=== PATIENT | male | born 1945 | race Caucasian/White ===

== ENCOUNTER → 2018-06-05 10:44 | Outpatient (CLI) | payer MEDICARE, OTHER, SELFPAY ==
--- NOTE | 2018-06-05 10:44 | DI.REPORT_ITS ---
SYMPTOM/DIAGNOSIS: RT SHOULDER INJURY WITH IMPINGEMENT SYNDROME M75.41 RIGHT SHOULDER: There is spurring of the AC joint and glenohumeral joint. The humeral head appears normally positioned. No tendon or joint space calcifications are seen. IMPRESSION: Degenerative changes.
== END ==
PROVIDERS: PCP Family Medicine; Visit Provider Family Medicine
DX: M25.511 Pain in right shoulder (principal); M75.41 Impingement syndrome of right shoulder; M19.011 Primary osteoarthritis, right shoulder
CPT/HCPCS: 73030

== ENCOUNTER 2018-11-15 13:42 | Outpatient (CLI) | payer MEDICARE, OTHER, SELFPAY ==
--- NOTE | 2018-11-15 11:00 | DI.RAD_ITS ---
SYMPTOMS/DIAGNOSIS: RT ARM PAIN/WEAKNESS, RT SIDE CERVICALGIA, M54.2 CERVICAL SPINE: The vertebral bodies are intact. There is reversal of the normal cervical lordosis. Severe degenerative changes are demonstrated, most advanced in the facet joints. There is also some flattening and sclerosis of the joints of Luschka. 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 The C 6 - 7 level is suboptimally visualized on this examination. The posterior elements appear intact. There is no evidence of gross bony compromise of the neural canal. Incidental note is made of a region of ossification in the ligamentum nuchae. The patient has a left shoulder prosthesis. SUMMARY: Severe degenerative changes involving the cervical spine. Please see the above discussion.
== END 2018-11-15 14:02 ==
PROVIDERS: PCP Family Medicine; Visit Provider Family Medicine
DX: M54.2 Cervicalgia (principal); M79.601 Pain in right arm; M50.30 Other cervical disc degeneration, unspecified cervical region
CPT/HCPCS: 72052

== ENCOUNTER 2018-12-03 14:35 | Emergency (ER) | payer MEDICARE, OTHER, SELFPAY ==
[2018-12-03] VITALS (30 sets, daily range): BP systolic 113–165; BP diastolic 68–107; PULSE 87–107; RESP 4–36; TEMP 37.2–37.4; O2SAT 83–97
--- NOTE | 2018-12-03 15:24 | DI.RAD_ITS ---
SYMPTOMS/DIAGNOSIS: SOB, COUGH, FEVER, DIZZY CHEST X-RAY, FRONTAL AND LATERAL VIEWS: Comparison is 06/05/18. The heart is normal in size. The lungs are clear. The mediastinal structures and pleura appear intact. IMPRESSION: Normal chest.
[2018-12-03] MEDS: Albuterol/Ipratropium 3 ML UPD VIAL UPD (15:40)
[2018-12-03 15:46] LABS: Lactate-non-spesis 1.1 mmol/l (0.6-1.4)
[2018-12-03 15:49] LABS: Abs Immature Grans 0.07 k/cumm (0.0-0.09); HCT 45.4 % (40.0-50.0); HGB 15.1 g/dL (13.5-17.5); Mean Corp. HGB Concentration 33.3 g/dL (32.0-36.0); Mean Corpuscular Hemoglobin 29.5 pg (27.0-33.0); Mean Corpuscular Volume 88.7 fL (80-95); Mean Platelet Volume 9.3 fL (8.0-11.0); Platelet Count 281 x1000/uL (130-400); RBC 5.12 m/cumm (4.50-6.00); RBC Distribution Width 14.4 % (11.8-14.1); White Blood Cell Count 16.15 k/cumm (4.4-10.8)
--- NOTE | 2018-12-03 15:50 | W.ED.GENAD ---
Discharge Plan Disposition Patient Disposition: HOME Condition: Stable Discharge Details Chief Complaint: SOB Clinical Impression: Community acquired pneumonia Reason For Visit: SOB cough fever dizzy Primary Care Provider: Nestor Barry ED Provider: Tc Nelson Home Meds and New Rx's Prescriptions: New levofloxacin 750 mg tablet 750 mg PO DAILY Qty: 6 RF: 0 No Action prednisone 20 mg tablet 40 mg PO DAILY Qty: 14 RF: 0 Ventolin HFA 90 mcg/actuation HFA aerosol inhaler 2 puff IH Q6H PRN (Reason: shortness of breath or wheezing) Qty: 8 RF: 1 Aerochamber Mini spacer .ROUTE .MEDSUPPLY Qty: 1 RF: 0 Discharge Instructions Instructions: Community Acquired Pneumonia (ED) Additional Instructions: Follow up with your primary care provider this week especially if symptoms continue If you feel you are worsening, having more trouble breathing or severe weakness return to the emergency department for reevaluation Discharge Data Discharge Date/Time-TO BE ENTERED AT DEPARTURE: 12/03/18 18:05 Medical Decision Making <Renato Pink NP - Last Filed: 12/06/18 11:09> Patient presenting to the emergency department for chief complaint of cold-like symptoms. Patient did have episode of slight near syncope when standing up in waiting room. He states that symptoms have been going on for approximately 6 days with persistent fever and chills, worsening cough, productive green sputum. Physical exam shows diffuse wheezing throughout all lung haddad and right lower lung rhonchi. Patient is otherwise stable with no hypotension, mild tachycardia, slightly hypoxic and tachypneic. Plan to do labs, influenza test, and chest x-ray for concern of pneumonia versus viral illness. Pending results. Patient was transferred to Dr. Nelson. Patient pending results review, any further treatments, and disposition. HPI <Renato Pink NP - Last Filed: 12/06/18 11:09> General Mode of arrival: ambulatory. Date/Time Provider Initiated Documentation: 12/03/18 15:24. Limitations to Documentation: no limitations. Information obtained by: patient, family and RN notes reviewed. History of Present Illness 73 year old M presents to the emergency department with the chief complaint of cough fever , described as mild, with intensity rated at 2. Quality is described as aching, and is localized to the chest (with coughing). Patient started experiencing this day(s) (6) and it has been constant. Patient did receive the following treatments prior to arrival, none Related Data Home Medications Medication Instructions Recorded Confirmed prednisone 20 mg tablet 40 mg PO DAILY #14 tab 11/15/18 12/03/18 albuterol sulfate HFA 90 2 puff IH Q6H PRN #8 gm 12/01/18 12/03/18 mcg/actuation aerosol inhaler inhalational spacing device #1 each 12/01/18 12/01/18 levofloxacin 750 mg PO DAILY #6 tab 12/03/18 Previous Rx's Medication Instructions Recorded prednisone 20 mg tablet 40 mg PO DAILY #14 tab 11/15/18 albuterol sulfate HFA 90 2 puff IH Q6H PRN #8 gm 12/01/18 mcg/actuation aerosol inhaler inhalational spacing device #1 each 12/01/18 levofloxacin 750 mg PO DAILY #6 tab 12/03/18 Allergies Allergy/AdvReac Type Severity Reaction Status Date / Time latex Allergy Mild Runny nose Unverified 12/03/18 15:04 and eyes ENVIROMENTAL Allergy Intermediate Uncoded 12/03/18 15:04 General Stated Complaint: SOB JACINTO: 3 Review of Systems <Renato Pink NP - Last Filed: 12/06/18 11:09> Constitutional Reports body ache(s), Reports chills, Reports fever(s), Denies headache(s) and Reports malaise Eyes Denies eye discharge ENT Reports as per HPI, Reports dizziness, Denies ear discharge, Reports otalgia, Denies headache(s), Reports nasal congestion, Reports nasal discharge, Denies neck pain, Denies sinus pain, Reports sinus pressure, Reports sore throat and Denies throat swelling Cardiovascular Denies chest pain and Reports dyspnea Respiratory Reports cough, Reports pain with cough and Reports dyspnea Musculoskeletal Denies joint swelling and Denies neck pain Integumentary/Breasts Denies rash Neurologic Denies confusion, Reports dizziness and Denies headache(s) Psychiatric Denies confusion Allergic/Immunologic Denies throat swelling PFS <Renato Pink NP - Last Filed: 12/06/18 11:09> Medical History Acne rosacea Actinic keratosis Allergic rhinitis BPH (benign prostatic hyperplasia) Back pain Chronic alcohol use Colon polyp Deviated septum Diverticulitis large intestine w/o perforation or abscess w/o bleeding Fatty liver Hyperlipidemia Hypertension Sleep apnea Syncope Ulcerative colitis Urticaria Surgical History Arthroplasty of knee Arthroscopy, Shoulder Colonoscopy - [facility] [place] (07/20/17) Surgery Total knee (right) Family History Mother Mental disorder Father CHF (congestive heart failure) Heart disease Brother No problems noted. Grandfather No problems noted. Grandfather No problems noted. Grandmother No problems noted. Grandmother No problems noted. Sister Neoplasm Sister No problems noted. Sister No problems noted. Sister No problems noted. Sister No problems noted. Sister No problems noted. Son No problems noted. Son No problems noted. Daughter No problems noted. Daughter No problems noted. Daughter No problems noted. Social History Smoking and Tabacco status: Former Tobacco Use Exam <Renato Pink NP - Last Filed: 12/06/18 11:09> Const General: cooperative, comfortable and no acute distress Orientation: alert and awake [facility] Head: normal to inspection, normocephalic and atraumatic Ears: hearing grossly normal bilaterally and TM's normal bilaterally General nose exam: external nose normal Face and sinus: normal facial exam, sinuses nontender and no erythema Mouth: oral mucosae normal, no drooling, no muffled voice and no trismus Throat: posterior oropharynx normal, tonsils normal and uvula midline Neck Neck: normal visual inspection, full ROM, no lymphadenopathy, no meningeal signs, trachea midline and supple Resp Effort & Inspection: normal respiratory effort and able to speak in complete sentences Auscultation: clear to auscultation bilaterally, rhonchi right lower and wheezes expiratory wheezes and scattered wheezes Cardio Rate: tachycardic Rhythm: regular rhythm Heart Sounds: S1 normal, S2 normal, normal S1 and S2, no click, no gallops, no murmurs and no rubs Skin General skin exam: no rashes or lesions noted and dry skin (warm) Neuro General: alert, awake, oriented x3, gait normal and moves all extremities Cognition: normal cognition Speech: speech normal Course <Renato Pink NP - Last Filed: 12/06/18 11:09> Vital Signs Temperature 37.2 C 12/03/18 15:01 Pulse 102 H 12/03/18 15:01 Respiratory Rate 22 12/03/18 15:01 Blood Pressure 165/90 H 12/03/18 15:01 Temperature 37.2 C 12/03/18 15:01 Temperature Source Oral 12/03/18 15:01 Pulse 102 H 12/03/18 15:01 Respiratory Rate 24 12/03/18 15:20 Respiratory Effort 12/03/18 15:20 Respiratory Depth Normal 12/03/18 15:20 Respiratory Pattern Normal 12/03/18 15:20 Blood Pressure 165/90 H 12/03/18 15:01 Blood Pressure Position Supine 12/03/18 15:01 Pulse Oximetry 95 12/03/18 15:12 Oxygen Delivery Method Room Air 12/03/18 15:12 Oxygen Flow Rate 0 12/03/18 15:12 Pain Level 2 12/03/18 15:01 Lab/Test Results Lab/Test Results: 12/03/18 15:40 Blood Blood Culture - Pending 12/03/18 15:12 Nasopharynx Influenza Types A,B Antigen - Final 12/03/18 15:24 Blood Blood Culture - Pending Laboratory Tests Range/Units 12/03/18 15:40 Lactate (0.6-1.4) mmol/l 1.1 Sign Out <Renato Pink NP - Last Filed: 12/06/18 11:09> Sign Out Data: Sign Out Comment: Patient signed out to Dr. Vik Nelson pending results of chest x-ray and blood work for concern of pneumonia. Last updated by Renato Pink NP at 12/03/18 16:12 Post-Handoff Eval: pt's xray shows no acute process. He does have a wbc of 16, hd stable, o2 sat on room air is 95%. He does have some rhonchi at the right lower base. I did recommend admission for likely CAP but he feels well enough to go home and would like to try outpatient management, he has capacity to make his own decisions and understands to return immediately if he worsens and f/u with pcp
--- NOTE | 2018-12-03 15:53 | ED.GENADUL_ITS ---
Discharge Plan Disposition Patient Disposition: HOME Condition: Stable Discharge Details Chief Complaint: SOB Clinical Impression: Community acquired pneumonia Reason For Visit: SOB cough fever dizzy Primary Care Provider: Nestor Barry ED Provider: Tc Nelson Home Meds and New Rx's Prescriptions: New levofloxacin 750 mg tablet 750 mg PO DAILY Qty: 6 RF: 0 No Action prednisone 20 mg tablet 40 mg PO DAILY Qty: 14 RF: 0 Ventolin HFA 90 mcg/actuation HFA aerosol inhaler 2 puff IH Q6H PRN (Reason: shortness of breath or wheezing) Qty: 8 RF: 1 Aerochamber Mini spacer .ROUTE .MEDSUPPLY Qty: 1 RF: 0 Discharge Instructions Instructions: Community Acquired Pneumonia (ED) Additional Instructions: Follow up with your primary care provider this week especially if symptoms continue If you feel you are worsening, having more trouble breathing or severe weakness return to the emergency department for reevaluation Discharge Data Discharge Date/Time-TO BE ENTERED AT DEPARTURE: 12/03/18 18:05 Medical Decision Making <Renato Pink NP - Last Filed: 12/06/18 11:09> Patient presenting to the emergency department for chief complaint of cold-like symptoms. Patient did have episode of slight near syncope when standing up in waiting room. He states that symptoms have been going on for approximately 6 days with persistent fever and chills, worsening cough, productive green sputum. Physical exam shows diffuse wheezing throughout all lung haddad and right lower lung rhonchi. Patient is otherwise stable with no hypotension, mild tachycardia, slightly hypoxic and tachypneic. Plan to do labs, influenza test, and chest x-ray for concern of pneumonia versus viral illness. Pending results. Patient was transferred to Dr. Nelson. Patient pending results review, any further treatments, and disposition. HPI <Renato Pink NP - Last Filed: 12/06/18 11:09> General Mode of arrival: ambulatory . Date/Time Provider Initiated Documentation: 12/03/18 15:24 . Limitations to Documentation: no limitations . Information obtained by: patient, family and RN notes reviewed . History of Present Illness 73 year old M presents to the emergency department with the chief complaint of cough fever , described as mild, with intensity rated at 2. Quality is described as aching, and is localized to the chest (with coughing). Patient started experiencing this day(s) (6) and it has been constant. Patient did receive the following treatments prior to arrival, none Related Data Home Medications Medication Instructions Recorded Confirmed prednisone 20 mg tablet 40 mg PO DAILY #14 tab 11/15/18 12/03/18 albuterol sulfate HFA 90 2 puff IH Q6H PRN #8 gm 12/01/18 12/03/18 mcg/actuation aerosol inhaler inhalational spacing device #1 each 12/01/18 12/01/18 levofloxacin 750 mg PO DAILY #6 tab 12/03/18 Previous Rx's Medication Instructions Recorded prednisone 20 mg tablet 40 mg PO DAILY #14 tab 11/15/18 albuterol sulfate HFA 90 2 puff IH Q6H PRN #8 gm 12/01/18 mcg/actuation aerosol inhaler inhalational spacing device #1 each 12/01/18 levofloxacin 750 mg PO DAILY #6 tab 12/03/18 Allergies Allergy/AdvReac Type Severity Reaction Status Date / Time latex Allergy Mild Runny nose Unverified 12/03/18 15:04 and eyes ENVIROMENTAL Allergy Intermediate Uncoded 12/03/18 15:04 General Stated Complaint: SOB JACINTO: 3 Review of Systems <Renato Pink NP - Last Filed: 12/06/18 11:09> Constitutional Reports body ache(s), Reports chills, Reports fever(s), Denies headache(s) and Reports malaise Eyes Denies eye discharge ENT Reports as per HPI, Reports dizziness, Denies ear discharge, Reports otalgia, Denies headache(s), Reports nasal congestion, Reports nasal discharge, Denies neck pain, Denies sinus pain, Reports sinus pressure, Reports sore throat and Denies throat swelling Cardiovascular Denies chest pain and Reports dyspnea Respiratory Reports cough, Reports pain with cough and Reports dyspnea Musculoskeletal Denies joint swelling and Denies neck pain Integumentary/Breasts Denies rash Neurologic Denies confusion, Reports dizziness and Denies headache(s) Psychiatric Denies confusion Allergic/Immunologic Denies throat swelling PFS <Renato Pink NP - Last Filed: 12/06/18 11:09> Medical History Acne rosacea Actinic keratosis Allergic rhinitis BPH (benign prostatic hyperplasia) Back pain Chronic alcohol use Colon polyp Deviated septum Diverticulitis large intestine w/o perforation or abscess w/o bleeding Fatty liver Hyperlipidemia Hypertension Sleep apnea Syncope Ulcerative colitis Urticaria Surgical History Arthroplasty of knee Arthroscopy, Shoulder Colonoscopy - [facility] [place] (07/20/17) Surgery Total knee (right) Family History Mother Mental disorder Father CHF (congestive heart failure) Heart disease Brother No problems noted. Grandfather No problems noted. Grandfather No problems noted. Grandmother No problems noted. Grandmother No problems noted. Sister Neoplasm Sister No problems noted. Sister No problems noted. Sister No problems noted. Sister No problems noted. Sister No problems noted. Son No problems noted. Son No problems noted. Daughter No problems noted. Daughter No problems noted. Daughter No problems noted. Social History Smoking and Tabacco status: Former Tobacco Use Exam <Renato Pink NP - Last Filed: 12/06/18 11:09> Const General: cooperative, comfortable and no acute distress Orientation: alert and awake [facility] Head: normal to inspection, normocephalic and atraumatic Ears: hearing grossly normal bilaterally and TM's normal bilaterally General nose exam: external nose normal Face and sinus: normal facial exam, sinuses nontender and no erythema Mouth: oral mucosae normal, no drooling, no muffled voice and no trismus Throat: posterior oropharynx normal, tonsils normal and uvula midline Neck Neck: normal visual inspection, full ROM, no lymphadenopathy, no meningeal signs, trachea midline and supple Resp Effort & Inspection: normal respiratory effort and able to speak in complete sentences Auscultation: clear to auscultation bilaterally, rhonchi right lower and wheezes expiratory wheezes and scattered wheezes Cardio Rate: tachycardic Rhythm: regular rhythm Heart Sounds: S1 normal, S2 normal, normal S1 and S2, no click, no gallops, no murmurs and no rubs Skin General skin exam: no rashes or lesions noted and dry skin (warm) Neuro General: alert, awake, oriented x3, gait normal and moves all extremities Cognition: normal cognition Speech: speech normal Course <Renato Pink NP - Last Filed: 12/06/18 11:09> Vital Signs Temperature 37.2 C 12/03/18 15:01 Pulse 102 H 12/03/18 15:01 Respiratory Rate 22 12/03/18 15:01 Blood Pressure 165/90 H 12/03/18 15:01 Temperature 37.2 C 12/03/18 15:01 Temperature Source Oral 12/03/18 15:01 Pulse 102 H 12/03/18 15:01 Respiratory Rate 24 12/03/18 15:20 Respiratory Effort 12/03/18 15:20 Respiratory Depth Normal 12/03/18 15:20 Respiratory Pattern Normal 12/03/18 15:20 Blood Pressure 165/90 H 12/03/18 15:01 Blood Pressure Position Supine 12/03/18 15:01 Pulse Oximetry 95 12/03/18 15:12 Oxygen Delivery Method Room Air 12/03/18 15:12 Oxygen Flow Rate 0 12/03/18 15:12 Pain Level 2 12/03/18 15:01 Lab/Test Results Lab/Test Results: 12/03/18 15:40 Blood Blood Culture - Pending 12/03/18 15:12 Nasopharynx Influenza Types A,B Antigen - Final 12/03/18 15:24 Blood Blood Culture - Pending Laboratory Tests Range/Units 12/03/18 15:40 Lactate (0.6-1.4) mmol/l 1.1 Sign Out <Renato Pink NP - Last Filed: 12/06/18 11:09> Sign Out Data: Sign Out Comment: Patient signed out to Dr. Vik Nelson pending results of chest x-ray and blood work for concern of pneumonia. Last updated by Renato Pink NP at 12/03/18 16:12 Post-Handoff Eval: pt's xray shows no acute process. He does have a wbc of 16, hd stable, o2 sat on room air is 95%. He does have some rhonchi at the right lower base. I did recommend admission for likely CAP but he feels well enough to go home and would like to try outpatient management, he has capacity to make his own decisions and understands to return immediately if he worsens and f/u with pcp
[2018-12-03 16:05] LABS: ALT 126 U/L (12-78); AST 46 U/L (15-37); Albumin 2.8 g/dL (3.4-5.0); Alkaline Phosphatase 132 U/L (46-116); Anion Gap 6.5 mmol/L (3-11); BUN 20 mg/dL (7-18); Bilirubin, Total 0.8 mg/dL (0.2-1.0); CO2 29.5 mmol/L (21.0-32.0); CREATININE 1.17 mg/dL (0.70-1.30); Calcium 9.1 mg/dL (8.5-10.1); Chloride 95 mmol/L (98-107); Glucose 123 mg/dL (70-100); Potassium 3.9 mmol/L (3.5-5.1); Sodium 131 mmol/L (136-145); Total Protein 8.2 g/dL (6.4-8.2)
[2018-12-03 16:06] LABS: Absolute Lymphocyte Count 3.39 k/cumm (1.2-3.4); Absolute Monocyte Count 2.26 k/cumm (0.11-0.7); Atypical Lymphocytes % 3; Diff Comment Manual Differential; RBC Morphology Normal
--- NOTE | 2018-12-03 16:42 | DI.VRAD_ITS ---
EXAM: XR Chest, 2 Views EXAM DATE/TIME: 12/03/2018 4:27 PM CLINICAL HISTORY: 73 years old, male; Signs and symptoms; Other: Cough, fever TECHNIQUE: XR of the chest, 2 views. COMPARISON: CR CHEST 2 VIEWS PA,LAT 03/25/2017 5:19 AM FINDINGS: The cardiomediastinal silhouette and pulmonary vasculature are within normal limits. The lungs are clear. No pleural effusion or pneumothorax is identified. IMPRESSION: No acute process. Dictated and Authenticated by: Denis Smith MD. Ordering:MAO Gross MD
[2018-12-03] MEDS: LEVOFLOXACIN 500 MG, LEVOFLOXACIN 250 MG 750 MG PO (17:47)
== END 2018-12-03 18:05 | disposition home or self-care (01) ==
PROVIDERS: Nurse Practitioner Family; Emergency Provider Emergency Medicine; PCP Family Medicine
DX: R06.02 Shortness of breath (principal); J18.9 Pneumonia, unspecified organism; R42 Dizziness and giddiness; R06.82 Tachypnea, not elsewhere classified; R09.02 Hypoxemia; I10 Essential (primary) hypertension
CPT/HCPCS: 36415; 80053; 87040; 87449; 93005; 94640; 99285; 71046; 83605; 85025; 93010; J7620

== ENCOUNTER 2019-01-11 10:22 | Outpatient (CLI) | payer MEDICARE, OTHER, SELFPAY ==
--- NOTE | 2019-01-11 14:00 | DI.RAD_ITS ---
SYMPTOMS/DIAGNOSIS: INJURY 10 DAYS AGO ON SNOWBLOWER, PAIN AT 2ND MCP JOINT, ? FX OR DISLOCATION, S69.9XA RIGHT INDEX FINGER: An oblique fracture involving the proximal metaphysis of the middle phalanx enters the interphalangeal joint and is displaced approximately 1 mm at the joint line. There is no evidence of a dislocation. Note is made of moderate degenerative changes involving the interphalangeal joints.
== END 2019-01-11 10:42 ==
PROVIDERS: PCP Family Medicine
DX: S62.610A Displaced fracture of proximal phalanx of right index finger, initial encounter for closed fracture (principal); S69.91XA Unspecified injury of right wrist, hand and finger(s), initial encounter
CPT/HCPCS: 73140

== ENCOUNTER → 2019-01-17 09:41 | Outpatient (BNVA) | payer MEDICARE, OTHER, SELFPAY | PROVIDERS: PCP Family Medicine; Referring Provider Family Medicine; Visit Provider Student in an Organized Health Care Education/Training Program | DX: R69 Illness, unspecified (principal) ==

== ENCOUNTER 2019-01-30 14:19 | Outpatient (CLI) | payer MEDICARE, OTHER, SELFPAY ==
--- NOTE | 2019-01-30 14:00 | DI.RAD_ITS ---
SYMPTOMS/DIAGNOSIS: REASSESS FRACTURE OF INDEX FINGER, S69.90XA RIGHT HAND: Three views. Comparison is 01/11/19. The fracture involving the middle phalanx of the right index finger is not well visualized on the current examination. This may be due to patient positioning or some interval healing. No new fractures or dislocations are seen. Degenerative changes are present throughout the hand, particularly at the distal interphalangeal joints of the index and middle fingers. There is soft tissue swelling of the right index finger.
== END 2019-01-30 14:39 ==
PROVIDERS: PCP Family Medicine; Visit Provider Family Medicine
DX: S62.610D Displaced fracture of proximal phalanx of right index finger, subsequent encounter for fracture with routine healing (principal)
CPT/HCPCS: 73130

== ENCOUNTER 2019-03-07 21:36 | Emergency (ER) | payer MEDICARE, OTHER, SELFPAY ==
[2019-03-07 21:47] VITALS: BP 175/111; PULSE 96; RESP 18; TEMP 37.1; O2SAT 100
[2019-03-07 21:56] VITALS: BP 132/92
--- NOTE | 2019-03-07 22:34 | W.ED.GENAD ---
Discharge Plan Disposition Patient Disposition: HOME Condition: Good Discharge Details Chief Complaint: Orthopedic Clinical Impression: Pain of hand and fingers, Hand swelling Primary Care Provider: Nestor Barry ED Provider: López Perry Home Meds and New Rx's Prescriptions: Continued lisinopril-hydrochlorothiazide 10-12.5 mg tablet 1 tab PO DAILY Qty: 90 RF: 3 hydromorphone 2 mg Tablet 2 mg PO Q3H PRNRF: 0 Changed naproxen 500 mg Tablet 500 mg PO BID Qty: 0 RF: 0 acetaminophen [Tylenol] 325 mg Capsule 650 mg PO Q6H PRNQty: 0 RF: 0 Discontinued gabapentin 300 mg Capsule 300 mg PO HS RF: 0 Discharge Instructions Additional Instructions: You may discontinue the gabapentin. Please take the naproxen twice a day with food for the next week. You may take the hydromorphone as needed for pain. You may take this with the naproxen. You may also take acetaminophen for pain. Try to keep your hand elevated. We will have care management facilitate getting you follow-up hopefully within the week with primary care. Return to ED for fevers, chills, worsening pain or swelling. Referrals: Nestor Barry. [Primary Care Provider] - Discharge Data Discharge Date/Time-TO BE ENTERED AT DEPARTURE: 03/07/19 22:49 Medical Decision Making Patient with bilateral hand pain and swelling that involves the MCP and PIP joints mostly. His wrists are normal. He has no erythema or warmth. There is no rash. There is no fever. This has been an ongoing issue that is getting worse. He reports that he did seem to get better with prednisone but is no longer on this. He has not been taking the naproxen. He did take Tylenol tonight. I reviewed his medications, he also has gabapentin and hydromorphone. There is no new traumatic injury. This seems to be more arthritic in nature but I do not know why all of a sudden in the last couple of months it has become a problem. He has seen orthopedics but he has not seeing internal medicine or rheumatology. He is followed by [facility] so we will have care management try to help get him in in the next week or so. I do not think x-rays are going to be helpful. I do not think he has infected joints. Not the right time a year for Lyme given that his symptoms started a couple months ago when there was still a fair amount of snow on the ground. I have asked him to discontinue the gabapentin as this is not neuropathic pain and he is only taking 300 at night. I am going to have him start the naproxen twice a day with food for at least the next week. Keep his hand elevated. Use Tylenol or hydromorphone as needed for breakthrough pain. Return to ED if he develops fever, chills, rash, increasing pain or swelling. Otherwise follow-up with primary care in the next week. Medical Records Medical records reviewed: Yes I reviewed the patient's medical records. HPI General Mode of arrival: ambulatory. Date/Time Provider Initiated Documentation: 03/07/19 21:58. Limitations to Documentation: no limitations. Information obtained by: patient. HPI Narrative: Patient presents tonight with increasing hand pain and swelling. Patient reports that he broke his right index finger about 9 to 10 weeks ago. He has been seen by orthopedics at [facility] and has had multiple x-rays. The fracture has healed. He continues to have pain and swelling of the right hand. That pain and swelling is worse tonight. It is now involving index and long finger as well as mild discomfort in the ring and little finger. He is also now developed discomfort in the left hand as well. He has had trouble with the right shoulder with a cortisone injection about 3 months ago. He has had discomfort in his posterior hip and hamstrings when trying to stand but that has been going on for a few weeks now. It is not a constant pain. He denies any rash. He denies any fevers or chills. He had been put on prednisone at one point in the past which seemed to help with the pain and swelling. He is not on it currently. He has not been taking the naproxen that he was prescribed. He has been unable to sleep tonight he came in for evaluation. Related Data Home Medications Medication Instructions Recorded Confirmed lisinopril 10 1 tab PO DAILY #90 tab 01/30/19 03/07/19 mg-hydrochlorothiazide 12.5 mg tablet acetaminophen [Tylenol] 650 mg PO Q6H PRN #0 cap 03/07/19 03/07/19 hydromorphone 2 mg PO Q3H PRN 03/07/19 03/07/19 naproxen 500 mg PO BID #0 tab 03/07/19 03/07/19 Previous Rx's Medication Instructions Recorded lisinopril 10 1 tab PO DAILY #90 tab 01/30/19 mg-hydrochlorothiazide 12.5 mg tablet acetaminophen [Tylenol] 650 mg PO Q6H PRN #0 cap 03/07/19 naproxen 500 mg PO BID #0 tab 03/07/19 Allergies Allergy/AdvReac Type Severity Reaction Status Date / Time latex Allergy Mild Runny nose Verified 03/07/19 21:52 and eyes ENVIROMENTAL Allergy Intermediate Uncoded 03/07/19 21:52 General Stated Complaint: Orthopedic JACINTO: 3 Review of Systems Constitutional Denies chills, Denies fever(s) and Denies weakness Cardiovascular Denies chest pain and Denies dyspnea Respiratory Denies dyspnea Musculoskeletal Reports arthralgias, Reports joint swelling, Reports limited range of motion and Reports stiffness Integumentary/Breasts Denies erythema, Denies rash and Denies wounds Neurologic Denies focal weakness, Denies sensory deficit and Denies weakness [facility] Medical History Acne rosacea Actinic keratosis Allergic rhinitis BPH (benign prostatic hyperplasia) Back pain Chronic alcohol use Colon polyp Deviated septum Diverticulitis large intestine w/o perforation or abscess w/o bleeding Fatty liver Hyperlipidemia Hypertension Sleep apnea Syncope Ulcerative colitis Urticaria Surgical History Arthroplasty of knee (Chronic) History of arthroplasty of left shoulder (Chronic) Colonoscopy - MAC (Inactive 07/20/17) Social History Smoking/Tobacco Use Status: Former Tobacco Use Drug use: Never Do you feel safe in your relationship?: Yes Exam Narrative Exam Narrative: Vitals: Initially quite hypertensive and mildly elevated heart rate. Const: Obese elderly male in NAD. HEENT: NC/AT. Normal facial exam. Neuro: A+O x 3. CN grossly in tact. Good strength and no focal deficit. Ext: Right hand with significant swelling involving the dorsum, the MCPs (especially index and long) and PIP joints of index and long. Decreased ROM due to pain and swelling. No tenderness with palpation of the flexor tendons and no pain with passive extension of fingers except in the joints. Left hand with some swelling that has started in the index and long MCP. Wrist and elbow normal bilaterally. Right shoulder with mild decrease in ROM due to pain. LE unremarkable, normal ROM of hips/knee/ankles. No calf tenderness. No edema. Skin: Warm and dry without rash. No erythema. Course Vital Signs Temperature 98.8 F 03/07/19 21:47 Pulse 96 H 03/07/19 21:47 Respiratory Rate 18 03/07/19 21:47 Blood Pressure 175/111 H 03/07/19 21:47 Pulse Oximetry 100 03/07/19 21:47 Temperature 98.8 F 03/07/19 21:47 Temperature Source Temporal Artery Scan 03/07/19 21:47 Pulse 96 H 03/07/19 21:47 Respiratory Rate 18 03/07/19 21:47 Respiratory Effort Non-Labored 03/07/19 21:50 Blood Pressure 132/92 H 03/07/19 21:56 Blood Pressure Position Sitting 03/07/19 21:47 Pulse Oximetry 100 03/07/19 21:47 Oxygen Delivery Method Room Air 03/07/19 21:47 Oxygen Flow Rate 0 03/07/19 21:47 Pain Level 10 03/07/19 21:50
--- NOTE | 2019-03-08 09:13 | PDOC.ERCMPRO ---
Care Management Progress Note 03/08-Dr. Perry requested assistance with a PCP (Jhonny) f/u within one week for worsening bi-lateral hand pain, swelling. Referral faxed to [facility] this am.
== END 2019-03-07 22:49 | disposition home or self-care (01) ==
PROVIDERS: Emergency Provider Emergency Medicine; PCP Family Medicine
DX: M79.641 Pain in right hand (principal); R22.31 Localized swelling, mass and lump, right upper limb
CPT/HCPCS: 99283

== ENCOUNTER 2019-03-14 15:27 | Outpatient (CLI) | payer MEDICARE, OTHER, SELFPAY ==
[2019-03-14 18:17] LABS: C-Reactive Protein 4.22 mg/dL (0.0-0.3)
[2019-03-15 09:21] LABS: Rheumatoid Factor 32 IU/mL (<12.5)
[2019-03-15 12:23] LABS: ANA Interpretation Positive (NEGAT); ANA Titer Pattern 1:320 Speckled
== END 2019-03-14 15:47 ==
PROVIDERS: PCP Family Medicine; Visit Provider Family Medicine
DX: M25.50 Pain in unspecified joint (principal)
CPT/HCPCS: 36415; 86038; 86140; 86431

== ENCOUNTER 2019-03-16 13:47 | Outpatient (CLI) | payer MEDICARE, OTHER, SELFPAY ==
[2019-03-20 14:11] LABS: dsDNA Ab, IgG 12.6 IU/mL (<30)
== END 2019-03-16 14:07 ==
PROVIDERS: PCP Family Medicine; Visit Provider Family Medicine
DX: R76.8 Other specified abnormal immunological findings in serum (principal)
CPT/HCPCS: 36415; 86225

== ENCOUNTER 2019-04-27 02:52 | Outpatient (CLI) | payer MEDICARE, OTHER, SELFPAY ==
[2019-04-27 09:22] LABS: ALT 62 U/L (12-78); AST 15 U/L (15-37); Albumin 3.4 g/dL (3.4-5.0); Alkaline Phosphatase 90 U/L (46-116); Bilirubin, Total 0.4 mg/dL (0.2-1.0); Total Protein 7.5 g/dL (6.4-8.2)
[2019-04-27 09:40] LABS: Calculated LDL 144 mg/dL; Cholesterol 204 mg/dL (50-200); HDL Cholesterol 46 mg/dL (40-60); Triglyceride 73 mg/dL (30-150)
== END 2019-04-27 03:12 ==
PROVIDERS: PCP Family Medicine; Visit Provider Family Medicine
DX: E78.5 Hyperlipidemia, unspecified (principal); R94.5 Abnormal results of liver function studies
CPT/HCPCS: 36415; 80061; 80076; 83721

== ENCOUNTER 2019-07-14 13:32 | Emergency (ER) | payer MEDICARE, OTHER, SELFPAY ==
[2019-07-14 13:37] VITALS: BP 140/76; PULSE 115; RESP 16; TEMP 36.8; O2SAT 94
--- NOTE | 2019-07-14 14:05 | DI.RAD_ITS ---
EXAM: XR CHEST 2V PA LATERAL INDICATION: cough. COMPARISON: XR CHEST 2V PA LATERAL from 12/03/2018 TECHNIQUE: 2D digital imaging was performed. FINDINGS: The lungs are well expanded and free of infiltrate. There is no pleural effusion. The heart is not enlarged. The hilar structures, mediastinum and tracheal air column are intact. IMPRESSION: No evidence of acute cardiopulmonary disease.
--- NOTE | 2019-07-14 14:06 | ED.GENADUL_ITS ---
Discharge Plan Disposition Patient Disposition: HOME Condition: Improving Discharge Details Chief Complaint: Allergic Clinical Impression: Allergic reaction, Acute dehydration Primary Care Provider: Nestor Barry ED Provider: Taya Metz Home Meds and New Rx's Prescriptions: New prednisone 20 mg tablet 40 mg PO DAILY Qty: 8 RF: 0 Continued naproxen 500 mg tablet 500 mg PO BID RF: 0 Prevnar 13 (PF) 0.5 mL syringe 0.5 ml IM ONCE Qty: 0.5 RF: 0 lisinopril-hydrochlorothiazide 10-12.5 mg tablet 1 tab PO DAILY Qty: 90 RF: 3 prednisone 10 mg tablet 10 mg PO DAILY Qty: 30 RF: 0 acetaminophen [Tylenol] 325 mg Capsule 650 mg PO Q6H PRNQty: 0 RF: 0 hydroxychloroquine 200 mg Tablet 400 mg PO DAILY RF: 0 Discharge Instructions Instructions: Dehydration (ED), General Allergic Reaction (ED) Additional Instructions: Encourage hydration. Please take the steroids as prescribed. Please follow-up with primary care next week for reevaluation. If you develop fever/chills, difficulty breathing, have rash, itching in your mouth, wheezing or the new/worsening symptoms please seek care urgently once again. Referrals: Nestor Barry [Primary Care Provider] - Discharge Data Discharge Date/Time-TO BE ENTERED AT DEPARTURE: 07/14/19 15:53 Medical Decision Making Patient 74-year-old male, accompanied by his , chief complaint of rash. He reports he woke this morning noted a diffuse urticarial rash. Denies any new k nown medications or foods. States that the rash is quite itchy. Denies any pain. Denies any fevers. No recent travel. Patient states that he did begin hydroxy chloroquine on 06/27/2019 but has been tolerating it well. Patient does have history of RA, allergic rhinitis, urticaria, cardiomyopathy, actinic keratosis, diverticulitis, hypertension, fibrous liver, rosacea. Denies any shortness of breath, wheezing. Denies any oral lesions. Denies any GI upset. Rash is localized to the torso and spares the remedies. Patient also reports she is been having a cough for the past 2 weeks. States it has been getting slightly better but that he continues to bring up phlegm. Denies any congestion, sore throat, ear pain. On exam, patient is resting comfortably. He does have a diffuse urticarial rash to the anterior posterior of the trunk. Spares the extremities. His lungs are clear. Patient is noted to be tachycardic at 115. Lungs are clear, given the tachycardia in the persistent cough for the past 2 weeks, I feel that imaging is appropriate. The tachycardia, as feel that blood work is appropriate. Discussed this plan with the patient is in agreement. Labs reviewed, no leukocytosis. Patient's BUN, creatinine are elevated, GFR is down to 53. At this is typical for the patient. He was over 61 last checked in November. ALT is elevated but this is not atypical for the patient. Patient's heart rate is now down to 95 after oral hydration. Patient did appear dehydrated on exam and was responding appropriately to fluids. Still awaiting read from chest x-ray. Will give prednisone for his urticarial reaction. FINDINGS: Mild degenerative changes of the thoracic spine. Prior left shoulder replacement. The lung haddad are clear bilaterally. No focal pulmonary consolidation is present. The cardiac silhouette is within normal limits. The costophrenic angles are sharp. The bony structures appear unremarkable. IMPRESSION: No evidence of acute cardiopulmonary disease. Discussed these findings with the patient. He was able to hydrate orally well. Heart rate is now down to 90 after oral hydration. Patient will begin on oral prednisone. She he was questioning if he would need to stop his medications, advised that he discuss this further with his primary care prior to cessation of medications. Encourage hydration. He was given strict return precautions. He will call his primary care to schedule close follow-up. All his questions and concerns were addressed and he is in agreement this plan. HPI General Mode of arrival: ambulatory . Date/Time Provider Initiated Documentation: 07/14/19 13:55 . Limitations to Documentation: no limitations . Information obtained by: patient, family () and RN notes reviewed . History of Present Illness 74 year old M presents to the emergency department with the chief complaint of itchy rash to torso, described as moderate (patient itching actively), with intensity rated at 1 (denies any pain). Patient started experiencing this hour(s) (awoke with rash) and it has been constant. No relieving factors improve symptom(s), No exacerbating factors reported . Patient notes cough (cough x 2 weeks); denies chest pain, fever/chills, loss of appetite, nausea/vomiting, shortness of breath and weakness. Patient did receive the following treatments prior to arrival, other (benadryl) Related Data Home Medications Medication Instructions Recorded Confirmed lisinopril 10 1 tab PO DAILY #90 tab 01/30/19 07/14/19 mg-hydrochlorothiazide 12.5 mg tablet acetaminophen [Tylenol] 650 mg PO Q6H PRN #0 cap 03/07/19 07/14/19 naproxen 500 mg tablet 500 mg PO BID tab 04/25/19 07/14/19 pneumoc 13-matthew conj-dip cr(PF) 0.5 0.5 ml IM ONCE #0.5 ml 04/25/19 04/25/19 mL IM syringe prednisone 10 mg tablet 10 mg PO DAILY #30 tab 06/06/19 07/14/19 hydroxychloroquine 400 mg PO DAILY 07/14/19 07/14/19 prednisone 40 mg PO DAILY #8 tab 07/14/19 Previous Rx's Medication Instructions Recorded lisinopril 10 1 tab PO DAILY #90 tab 01/30/19 mg-hydrochlorothiazide 12.5 mg tablet acetaminophen [Tylenol] 650 mg PO Q6H PRN #0 cap 03/07/19 pneumoc 13-matthew conj-dip cr(PF) 0.5 0.5 ml IM ONCE #0.5 ml 04/25/19 mL IM syringe prednisone 10 mg tablet 10 mg PO DAILY #30 tab 06/06/19 prednisone 40 mg PO DAILY #8 tab 07/14/19 Allergies Allergy/AdvReac Type Severity Reaction Status Date / Time latex Allergy Mild Runny nose Verified 07/14/19 13:44 and eyes ENVIROMENTAL Allergy Intermediate Uncoded 07/14/19 13:44 General Stated Complaint: Allergic JACINTO: 3 Review of Systems Constitutional Constitutional: Reports as per HPI and Denies headache(s) Eyes Eyes: Reports as per HPI, Denies eye discharge and Denies irritation ENT Ears, Nose, Mouth, and Throat: Reports as per HPI and Denies headache(s) Cardiovascular Cardiovascular: Reports as per HPI, Denies chest pain and Denies dyspnea Respiratory Respiratory: Reports as per HPI and Denies dyspnea Gastrointestinal Gastrointestinal: Reports as per HPI, Denies abdominal pain, Denies change in bowel habits, Denies nausea and Denies vomiting Integumentary/Breasts Skin/Breast: Reports as per HPI and Reports rash Neurologic Neurologic: Reports as per HPI and Denies headache(s) [facility] Medical History Acne rosacea Actinic keratosis Allergic rhinitis Back pain BPH (benign prostatic hyperplasia) Chronic alcohol use Colon polyp Deviated septum Diverticulitis large intestine w/o perforation or abscess w/o bleeding Fatty liver Hyperlipidemia Hypertension Sleep apnea Syncope Ulcerative colitis Urticaria Surgical History Arthroplasty of knee (Chronic) 05/05; b/l Colonoscopy - MAC (Inactive 07/20/17) History of arthroplasty of left shoulder (Chronic) Social History Smoking/Tobacco Use Status: Former Tobacco Use Alcohol Intake: current Alcohol Intake frequency: a few times a week Drug use: Never Substance use type: does not use Household members: spouse Communication Needs: Corrective Lenses Pets and animals: No Current gender identity: decline to answer What is your relationship status?: How often do you talk on the phone with friends or family?: three or more times per week How often do you get together with friends or relatives?: once per week How often do you attend nondenominational or christianity services?: decline to answer Do you belong to any clubs or organized social groups?: no Panel score (0-1 are the most socially isolated patients): 2 What type of physical activity do you participate in: decline to answer Duration: decline to answer Frequency: decline to answer Moira/Yazdanism: Christianity Special moira needs: No Seatbelt use: always Drive intox or ride w/intox bobtail driver: No Do you feel safe at home: Yes Do you feel safe in your relationship?: Yes Exam Const General: cooperative, healthy appearing, comfortable, no acute distress, well developed and well groomed Nutritional Appearance: well nourished and overweight Orientation: alert and awake [facility] Head: normal to inspection, normocephalic and atraumatic Ears: hearing grossly normal bilaterally, external ears normal and TM's normal bilaterally General nose exam: external nose normal and nares normal Face and sinus: normal facial exam, sinuses nontender and face symmetric Mouth: oral mucosae normal, lip normal, tongue normal, oropharynx normal and moist mucous membranes Teeth and gingiva: dentition normal Throat: posterior oropharynx normal, tonsils normal and uvula midline Eyes General: appearance normal, both eyes and all related structures Neck Neck: normal visual inspection, full ROM, no lymphadenopathy and no meningeal signs Resp Effort & Inspection: normal respiratory effort, able to speak in complete sentences and no respiratory distress Auscultation: clear to auscultation bilaterally, no rales, no rhonchi and no wheezes Cardio Rate: tachycardic Rhythm: regular rhythm Heart Sounds: S1 normal and S2 normal GI Inspection: abnormal to inspection (rash as described below) Back/Spine/Pelvis Thoracic/Lumbar Spine: No thoracic and lumbar spine normal to inspection (rash as below) Skin Rashes: rashes noted (raised urticarial rash to torso, spares extremities) Neuro General: alert and awake Cognition: normal cognition Speech: speech normal Gait: normal gait Psych Appearance: grossly normal and well kempt Mental Status: mental status grossly normal Speech and Movement: speech and movement normal Course Vital Signs Vital signs: Vital Signs Temperature 36.8 C 07/14/19 13:37 Pulse 115 H 07/14/19 13:37 Respiratory Rate 16 07/14/19 13:37 Blood Pressure 140/76 07/14/19 13:37 Pulse Oximetry 94 L 07/14/19 13:37 Temperature 36.8 C 07/14/19 13:37 Temperature Source Temporal Artery Scan 07/14/19 13:37 Pulse 115 H 07/14/19 13:37 Respiratory Rate 16 07/14/19 13:37 Respiratory Effort Non-Labored 07/14/19 13:43 Blood Pressure 140/76 07/14/19 13:37 Blood Pressure Position Sitting 07/14/19 13:37 Pulse Oximetry 94 L 07/14/19 13:37 Oxygen Delivery Method Room Air 07/14/19 13:37 Oxygen Flow Rate 0 07/14/19 13:37 Pain Level 7 07/14/19 13:37
[2019-07-14 14:25] LABS: Abs Immature Grans 0.07 k/cumm (0.0-0.09); Absolute Basophil Count 0.02 k/cumm (0.0-0.2); Absolute Eosinophil Count 0.11 k/cumm (0.0-0.7); Absolute Lymphocyte Count 2.78 k/cumm (1.2-3.4); Absolute Monocyte Count 0.93 k/cumm (0.11-0.7); Absolute Neutrophil Count 6.77 k/cumm (1.2-6.7); Basophils % 0.2; HCT 45.6 % (40.0-50.0); HGB 15.1 g/dL (13.5-17.5); Immature Grans % 0.7; Mean Corp. HGB Concentration 33.1 g/dL (32.0-36.0); Mean Corpuscular Hemoglobin 29.9 pg (27.0-33.0); Mean Corpuscular Volume 90.3 fL (80-95); Mean Platelet Volume 9.3 fL (8.0-11.0); Monocytes % 8.7; Neutrophils % 63.4; Platelet Count 279 x1000/uL (130-400); RBC 5.05 m/cumm (4.50-6.00); RBC Distribution Width 13.7 % (11.8-14.1); White Blood Cell Count 10.68 k/cumm (4.4-10.8)
--- NOTE | 2019-07-14 14:37 | NUR.NOTE ---
pt to xray Nursing Note:
[2019-07-14 14:41] LABS: ALT 98 U/L (16-63); AST 28 U/L (15-37); Albumin 3.7 g/dL (3.4-5.0); Alkaline Phosphatase 117 U/L (46-116); Anion Gap 10.6 mmol/L (3-11); BUN 19 mg/dL (7-18); Bilirubin, Total 0.5 mg/dL (0.2-1.0); CO2 23.4 mmol/L (21.0-32.0); CREATININE 1.32 mg/dL (0.70-1.30); Chloride 103 mmol/L (98-107); Estimated GFR 53.17 (mL/min/1.73m2); Glucose 179 mg/dL (70-100); Potassium 3.9 mmol/L (3.5-5.1); Sodium 137 mmol/L (136-145); Total Protein 8.5 g/dL (6.4-8.2)
[2019-07-14] MEDS: predniSONE 20 MG TAB 40 MG PO (15:15)
--- NOTE | 2019-07-14 15:26 | DI.VRAD_ITS ---
PROCEDURE INFORMATION: Exam: XR Chest, 2 Views Exam date and time: 07/14/2019 2:06 PM Clinical history: 74 years old, male; Other: Cough TECHNIQUE: Imaging protocol: XR of the chest Views: 2 views. COMPARISON: CR XR CHEST 2V PA LATERAL 12/03/2018 4:21 PM FINDINGS: Mild degenerative changes of the thoracic spine. Prior left shoulder replacement. The lung haddad are clear bilaterally. No focal pulmonary consolidation is present. The cardiac silhouette is within normal limits. The costophrenic angles are sharp. The bony structures appear unremarkable. IMPRESSION: No evidence of acute cardiopulmonary disease. Dictated and Authenticated by: Chava Adams MD. Ordering:ASHLEY Bain MD
[2019-07-14 15:59] VITALS: BP 134/80; PULSE 90; RESP 18; TEMP 36.7; O2SAT 99
== END 2019-07-14 15:53 | disposition home or self-care (01) ==
PROVIDERS: Emergency Provider Physician Assistant; PCP Family Medicine
DX: L50.0 Allergic urticaria (principal); R00.0 Tachycardia, unspecified; E86.0 Dehydration; I10 Essential (primary) hypertension
CPT/HCPCS: 36415; 80053; 99284; 71046; 85025; J7512

== ENCOUNTER 2020-04-30 08:52 | Outpatient (CLI) | payer MEDICARE, OTHER, SELFPAY ==
[2020-04-30 12:55] LABS: ALT 58 U/L (16-63); AST 26 U/L (15-37); Alkaline Phosphatase 121 U/L (46-116); Anion Gap 12.1 mmol/L (3-11); BUN 15 mg/dL (7-18); Bilirubin, Total 0.6 mg/dL (0.2-1.0); CO2 23.9 mmol/L (21.0-32.0); CREATININE 1.27 mg/dL (0.70-1.30); Calcium 9.5 mg/dL (8.5-10.1); Calculated LDL 147 mg/dL (<100); Chloride 101 mmol/L (98-107); Cholesterol 204 mg/dL (<200); Estimated GFR 55.44 (mL/min/1.73m2); Glucose 127 mg/dL (74-106); HDL Cholesterol 32 mg/dL (40-60); Potassium 4.2 mmol/L (3.5-5.1); Sodium 137 mmol/L (136-145); Total Protein 8.8 g/dL (6.4-8.2); Triglyceride 125 mg/dL (<150)
[2020-04-30 12:57] LABS: Hemoglobin A1C 5.4 % (3.8-5.6)
[2020-05-01 12:06] LABS: Albumin 48.5 % (55.8-66.1); Total Protein 8.8 g/dL (6.3-8.2)
== END 2020-04-30 09:12 ==
PROVIDERS: PCP Family Medicine; Visit Provider Family Medicine
DX: R73.9 Hyperglycemia, unspecified (principal); E78.5 Hyperlipidemia, unspecified; K76.0 Fatty (change of) liver, not elsewhere classified; E88.09 Other disorders of plasma-protein metabolism, not elsewhere classified; R73.09 Other abnormal glucose
CPT/HCPCS: 36415; 80053; 80061; 83036; 84165

== ENCOUNTER 2020-09-29 09:13 | Emergency (ER) | payer MEDICARE, OTHER, SELFPAY ==
[2020-09-29] VITALS (40 sets, daily range): BP systolic 116–146; BP diastolic 68–99; PULSE 66–97; RESP 12–28; TEMP 36.5; O2SAT 84–100
--- NOTE | 2020-09-29 09:15 | RT.EKG_ITS ---
APPROVED REPORT Exam: Resting ECG Patient Location: E HR:94 bpm ECG Measurements Heart Rate 94 AXIS ND 187 P 81 QRSd 85 QRS 38 QT 356 T 67 QTc 446 Conclusion Sinus rhythm...normal P axis, V-rate 60- 99 sinus rhythm at 94, normal axis, T wave flattening in leads I and aVL present on prior 2018, no STEMI , nondiagnostic EKG
--- NOTE | 2020-09-29 09:45 | RT.EKG_ITS ---
APPROVED REPORT Exam: Resting ECG Patient Location: E HR:71 bpm ECG Measurements Heart Rate 71 AXIS AL 196 P 51 QRSd 87 QRS 24 QT 405 T 49 QTc 442 Conclusion Sinus rhythm...normal P axis, V-rate 60- 99 sinus rhythm 71, normal axis, no major changes from prior, no STEMI, nondiagnostic EKG
[2020-09-29 09:51] LABS: Abs Immature Grans 0.02 10^3/uL (0.0-0.06); Absolute Basophil Count 0.04 10^3/uL (0.0-0.2); Absolute Eosinophil Count 0.13 10^3/uL (0.0-0.7); Absolute Lymphocyte Count 3.15 10^3/uL (1.2-3.4); Absolute Neutrophil Count 4.75 10^3/uL (1.2-6.7); Basophils % 0.4; Eosinophils % 1.4; HCT 50.2 % (40.0-50.0); HGB 16.4 g/dL (13.5-17.5); Immature Grans % 0.2; MCH 29.3 pg (27.0-33.0); MCHC 32.7 % (32.0-36.0); MCV 89.8 fL (80-95); MPV 9.5 fL (8.0-11.0); Nucleated RBC 0 %; Platelet Count 286 10^3/uL (130-400); RBC 5.59 10^6/uL (4.36-5.78); RDW 13.3 % (11.8-14.1); RDW-SD 43.6 fL; WBC 8.99 10^3/uL (4.4-10.8)
[2020-09-29 09:57] LABS: BE 2 mmol/L (-2-3); HCO3 26 mmol/L (22-26); pCO2 37 mmHg (35-45); pH 7.45 (7.35-7.45); pO2 87 mmHg (80-105); sO2 97 % (95-98); tCO2 22 mmol/L (23-27)
[2020-09-29 09:59] LABS: FIO2L 2 L; Site Right Radial
--- NOTE | 2020-09-29 09:59 | ED.GENADUL_ITS ---
Discharge Plan Disposition Patient Disposition: AGAINST MEDICAL ADVICE Condition: Stable Discharge Details Clinical Impression: Chest pain, Pneumonia Primary Care Provider: Nestor Barry ED Provider: Sivan Cortes Home Meds and New Rx's Prescriptions: New doxycycline hyclate 100 mg capsule 100 mg PO BID Qty: 19 RF: 0 Continued hydroxychloroquine 200 mg tablet 400 mg PO DAILY Qty: 180 RF: 3 lisinopril-hydrochlorothiazide 10-12.5 mg tablet 1 tab PO DAILY Qty: 90 RF: 3 sildenafil 100 mg tablet 50 - 100 mg PO DAILY MDD 100 mg PRN (Reason: sexual activity) Qty: 6 RF: 5 acetaminophen [Tylenol] 325 mg Capsule 650 mg PO Q6H PRNQty: 0 RF: 0 Discontinued amoxicillin 500 mg capsule 2,000 mg PO ONCE Qty: 4 RF: 0 Discharge Instructions Instructions: Doxycycline (By mouth), Chest Pain (ED), Pneumonia (ED) Additional Instructions: You have elected to leave the emergency department AGAINST MEDICAL ADVICE. The risks of doing so are of chronic disability. If you change your mind you may return to the emergency department anytime. Please return immediately to the emergency department if you develop any new or worsening symptoms, if your condition does not improve as expected, or if you become otherwise concerned. 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 You will also need to have a stress test performed as we discussed. You should receive a call from care management to schedule both a cardiology appointment and a stress test. As we discussed, your Covid test is pending. Please behave as if the test is positive and isolate at home as we discussed until you are called with a negative result. Stand Alone Forms: PENDING COVID-19 TESTING Referrals: Carl Keita MD [MD CONSULTING PHYSICIAN] - Nestor Barry [Primary Care Provider] - Discharge Data Discharge Date/Time-TO BE ENTERED AT DEPARTURE: 09/29/20 13:55 Medical Decision Making Mayank Mendoza is a 75-year-old man with a history of hypertension, hyperlipidemia, cardiomyopathy, liver fibrosis, ulcerative colitis, rheumatoid arthritis who presented to the emergency department with chest tightness, shortness of breath over the past 3 days with intermittent sensation of chest pressure, also with dry cough over the past week or so. On exam patient is well and nontoxic-appearing. Benign cardiopulmonary exam. Speaking in full sentences. On initial evaluation patient with O2 sat 87% on room air with good waveform, multiple digits b/l checked. No improvement with nasal cannula oxygen. Plan was made for ABG. Patient with ear probe placed, O2 sats 100% on 4 L, 96% on 1 L. ABG obtained on 2 L O2. Concern for pulmonary embolism, Covid, other pneumonia, acute coronary syndrome, other. Exam/history at this time is not consistent with acute aortic pathology, sepsis. EKG nondiagnostic. Plan for screening labs, EKG, telemetry. Will monitor and reassess. Patient reported episode of chest pressure, EKG repeated with no significant change, chest pressure resolved within 1 to 2 minutes. Lab review shows WBC 8.99, hemoglobin 16.4, ABG okay, sodium 135, creatinine 1.3, initial troponin negative, BNP negative, D-dimer more elevated greater than 2000. Second troponin negative. CT shows mild right lower lobe infiltrate, no other acute findings per radiology. Plan for admission based on moderate HEART score. I discussed patient laboratory and imaging results with him. Patient states that he is pain-free at this time feels fine and is ready to go home. I discussed plan for admission with the patient. Patient states that he would much prefer to go home and follow-up as an outpatient. I discussed reasons for admission, risks of leaving AGAINST MEDICAL ADVICE including , permanent disability. Patient verbalizes understanding of the risk and continues to refuse admission. Patient has capacity for informed refusal. We will treat pneumonia with doxycycline, schedule stress test, placed on care management referral for cardiology outpatient appointment. I had a lengthy discussion with Patient regarding return to emergency department precautions, that he may return to emergency department anytime if he changes his mind, home care, and importance of outpatient follow-up. Pt verbalizes understanding of the plan and is amenable. Patient discharged to home with clear plan for outpatient follow- up. All questions were answered. Disposition decision was made weighing the risks and benefits of hospitalization versus outpatient treatment, the risk for further decompensation, and the patient's wishes. Medical Records Medical records reviewed: Yes I reviewed the patient's medical records. Imaging Data Radiologic Study: Attestation: I personally reviewed and interpreted this imaging study as follows: Radiologist's impression: EXAM: CT CHEST PE CTA CLINICAL HISTORY: chest tightness, hypoxia. TECHNIQUE: Imaging Protocol: CT angiography of the chest was performed using pulmonary embolus protocol. Multi planar reconstructions were performed. CONTRAST MATERIAL: Intravenous: Omnipaque 350 Contrast volume:100 ml Oral: None COMPARISON: CT ABD PELVIS WITH CONTRAST from 07/05/2017 FINDINGS: CHEST: PULMONARY ARTERIES: There are no intraluminal filling defects to suggest acute pulmonary emboli. LUNGS: There is no evidence of pulmonary infarction. Mild infiltrate noted in the right lung base posterior basal segment right lower lobe. No pleural effusions. MEDIASTINUM: There is no hilar nor mediastinal adenopathy. Visualized thyroid unremarkable. CARDIAC: Heart size is normal. There is no pericardial effusion.Caliber of the thoracic aorta is within normal limits. There is no shift of the interventricular septum. No evidence of aortic dissection. OSSEOUS: No significant osseous lesions.. IMPRESSION: 1. No evidence of acute pulmonary emboli. No evidence of pulmonary infarction. No evidence of obvious right heart failure. 2. Mild infiltrate posterior basal segment right lower lobe. No pleural effusions. No intrathoracic adenopathy. 3. No evidence of aortic dissection. No pericardial effusion. Lab Data Lab results reviewed: Yes I reviewed the patient's lab results. Labs: Laboratory Tests Range/Units 09/29/20 09/29/20 09/29/20 09:35 09:35 09:35 WBC (4.4-10.8) 10^3/uL 8.99 RBC (4.36-5.78) 10^6/uL 5.59 Hgb (13.5-17.5) g/dL 16.4 Hct (40.0-50.0) % 50.2 H MCV (80-95) fL 89.8 MCH (27.0-33.0) pg 29.3 MCHC (32.0-36.0) % 32.7 RDW (11.8-14.1) % 13.3 Plt Count (130-400) 10^3/uL 286 MPV (8.0-11.0) fL 9.5 Immature Gran % 0.2 Neutrophils % 53.0 Lymphocytes % 35.0 Monocytes % 10.0 Eosinophils % 1.4 Basophils % 0.4 Nucleated RBC % % 0 Absolute Neutrophils (1.2-6.7) 10^3/uL 4.75 Absolute Lymphocytes (1.2-3.4) 10^3/uL 3.15 Absolute Monocytes (0.1-0.8) 10^3/uL 0.90 H Absolute Eosinophils (0.0-0.7) 10^3/uL 0.13 Absolute Basophils (0.0-0.2) 10^3/uL 0.04 D-Dimer (<500) ng/mlFEU 2067 H ABG Sample Site ABG pH (7.35-7.45) ABG pCO2 (35-45) mmHg ABG pO2 (80-105) mmHg ABG HCO3 (22-26) mmol/L ABG Total CO2 (23-27) mmol/L ABG O2 Saturation (95-98) % ABG Base Excess (-2-3) mmol/L Oxygen Liter Flow L FiO2 % Sodium (136-145) mmol/L 135 L Potassium (3.5-5.1) mmol/L 3.9 Chloride (98-107) mmol/L 100 Carbon Dioxide (21.0-32.0) mmol/L 29.2 Anion Gap (3-11) mmol/L 5.8 BUN (7-18) mg/dL 18 Creatinine (0.70-1.30) mg/dL 1.38 H Estimated GFR/1.73 m2 (mL/min/1.73m2) 50.37 Glucose (74-106) mg/dL 136 H Calcium (8.5-10.1) mg/dL 9.2 Ferritin (26-388) ng/mL 57 Total Bilirubin (0.2-1.0) mg/dL 0.6 AST (15-37) U/L 22 ALT (16-63) U/L 48 Alkaline Phosphatase (46-116) U/L 103 Lactate Dehydrogenase (85-227) U/L 143 Troponin I (<0.06) ng/mL < 0.05 NT-Pro-B Natriuret Pep (<300) pg/mL Total Protein (6.4-8.2) g/dL 9.0 H Albumin (3.4-5.0) g/dL 3.8 Range/Units 09/29/20 09/29/20 09/29/20 09:35 09:55 12:33 WBC (4.4-10.8) 10^3/uL RBC (4.36-5.78) 10^6/uL Hgb (13.5-17.5) g/dL Hct (40.0-50.0) % MCV (80-95) fL MCH (27.0-33.0) pg MCHC (32.0-36.0) % RDW (11.8-14.1) % Plt Count (130-400) 10^3/uL MPV (8.0-11.0) fL Immature Gran % Neutrophils % Lymphocytes % Monocytes % Eosinophils % Basophils % Nucleated RBC % % Absolute Neutrophils (1.2-6.7) 10^3/uL Absolute Lymphocytes (1.2-3.4) 10^3/uL Absolute Monocytes (0.1-0.8) 10^3/uL Absolute Eosinophils (0.0-0.7) 10^3/uL Absolute Basophils (0.0-0.2) 10^3/uL D-Dimer (<500) ng/mlFEU ABG Sample Site Right radial ABG pH (7.35-7.45) 7.45 ABG pCO2 (35-45) mmHg 37 ABG pO2 (80-105) mmHg 87 ABG HCO3 (22-26) mmol/L 26 ABG Total CO2 (23-27) mmol/L 22 L ABG O2 Saturation (95-98) % 97 ABG Base Excess (-2-3) mmol/L 2 Oxygen Liter Flow L 2 FiO2 % placed 2l 10min pre Sodium (136-145) mmol/L Potassium (3.5-5.1) mmol/L Chloride (98-107) mmol/L Carbon Dioxide (21.0-32.0) mmol/L Anion Gap (3-11) mmol/L BUN (7-18) mg/dL Creatinine (0.70-1.30) mg/dL Estimated GFR/1.73 m2 (mL/min/1.73m2) Glucose (74-106) mg/dL Calcium (8.5-10.1) mg/dL Ferritin (26-388) ng/mL Total Bilirubin (0.2-1.0) mg/dL AST (15-37) U/L ALT (16-63) U/L Alkaline Phosphatase (46-116) U/L Lactate Dehydrogenase (85-227) U/L Troponin I (<0.06) ng/mL < 0.05 NT-Pro-B Natriuret Pep (<300) pg/mL 46 Total Protein (6.4-8.2) g/dL Albumin (3.4-5.0) g/dL ECG Data Attestation: I personally reviewed and interpreted this ECG (s) as follows: Interpretation: EKG 9: 22 shows sinus rhythm at 94, normal axis, T wave flattening in leads I and aVL present on prior 2018, no STEMI, nondiagnostic EKG EKG 10: 02 shows sinus rhythm 71, normal axis, no major changes from prior, no STEMI, nondiagnostic EKG HPI General Mode of arrival: ambulatory . Date/Time Provider Initiated Documentation: 09/29/20 09:16 . Limitations to Documentation: no limitations . Information obtained by: patient, RN notes reviewed and old records reviewed . HPI Narrative: Mayank Mendoza is a 75-year-old man with a history of rheumatoid arthritis, cardiomyopathy, hypertension, liver fibrosis, hyperlipidemia presenting to emergency department with chest tightness. Patient reports that he has had chest tightness for approximately 3 days. Patient reports the chest tightness is worse in the morning seems to improve somewhat throughout the day. He reports that the sensation waxes and wanes. Patient also reports a pressure sensation that occurs sporadically, is moderate to severe but last for a minute or so. He states this occurs a few times a day over the past 3 days. No known inciting factors. Patient also reports dry cough in the mornings over the past week or so, and shortness of breath over the past 3 days that is mild. Patient reports that he typically rides an exercise bike and also walks a fair amount outside. Patient reports that he lasted this on the day of his symptom onset, and had no worsening of his chest tightn ess/pressure or shortness of breath while exercising. Patient reports that he did not exercise the past 2 days because of weather and the weekend, which is typical for him. Has been eating and drinking as usual. No fever, vomiting, diarrhea, numbness, weakness, rash. Patient reports no known Covid contacts, no recent travel. Patient states that while sitting in bed in the emergency department, he has a mild sensation of chest tightness, no chest pressure, no shortness of breath and otherwise feels quite well. Related Data Home Medications Medication Instructions Recorded Confirmed acetaminophen [Tylenol] 650 mg PO Q6H PRN #0 cap 03/07/19 09/29/20 hydroxychloroquine 200 mg tablet 400 mg PO DAILY #180 tab 08/14/19 09/29/20 lisinopril 10 1 tab PO DAILY #90 tab 02/28/20 09/29/20 mg-hydrochlorothiazide 12.5 mg tablet sildenafil 100 mg tablet 50 - 100 mg PO DAILY PRN #6 tab 08/14/20 09/29/20 MDD 100 mg doxycycline hyclate 100 mg PO BID #19 cap 09/29/20 Previous Rx's Medication Instructions Recorded acetaminophen [Tylenol] 650 mg PO Q6H PRN #0 cap 03/07/19 hydroxychloroquine 200 mg tablet 400 mg PO DAILY #180 tab 08/14/19 lisinopril 10 1 tab PO DAILY #90 tab 02/28/20 mg-hydrochlorothiazide 12.5 mg tablet sildenafil 100 mg tablet 50 - 100 mg PO DAILY PRN #6 tab 08/14/20 MDD 100 mg doxycycline hyclate 100 mg PO BID #19 cap 09/29/20 Allergies Allergy/AdvReac Type Severity Reaction Status Date / Time latex Allergy Mild Runny nose Verified 09/29/20 09:50 and eyes ENVIROMENTAL Allergy Intermediate Uncoded 09/29/20 09:50 General Stated Complaint: Chest Pain JACINTO: 2 Review of Systems Narrative: Constitutional: denies fevers Eyes: denies eye pain ENT: denies ear pain, dental pain, sore throat Cardiovascular: Reports chest tightness, chest pain as per HPI, denies orthopnea Respiratory: Reports SOB, cough GI: denies abdominal pain, vomiting, diarrhea : denies flank pain MSK: denies back pain, neck pain, arthralgias, myalgias Skin: denies rash Neuro: denies headaches, numbness, weakness [facility] Medical History (Updated 09/29/20 @ 13:42 by Sivan Cortes MD) Acne rosacea Actinic keratosis Allergic rhinitis Back pain BPH (benign prostatic hyperplasia) Chronic alcohol use Colon polyp Deviated septum Diverticulitis large intestine w/o perforation or abscess w/o bleeding Erectile disorder due to medical condition in male Fatty liver Hyperlipidemia Hypertension Sleep apnea Syncope Ulcerative colitis Urticaria Surgical History Arthroplasty of knee 05/05; b/l Colonoscopy - MAC (07/20/17) History of arthroplasty of left shoulder Family History Mother , 92 Mental disorder [place] Father , 72 CHF (congestive heart failure) Heart disease Brother No problems noted. Maternal Grandfather , 86 No problems noted. Paternal Grandfather , 84 No problems noted. Maternal Grandmother No problems noted. Paternal Grandmother No problems noted. Sister Breast cancer Sister No problems noted. Sister No problems noted. Sister No problems noted. Sister No problems noted. Sister No problems noted. Son No problems noted. Son No problems noted. Daughter No problems noted. Daughter No problems noted. Daughter , ACCIDENTAL at age 35. No problems noted. Social History Smoking/Tobacco Use Status: Former Tobacco Use Smoking risk assessment performed?: Yes Alcohol Intake: current Alcohol Intake frequency: a few times a week Drug use: Never Substance use type: does not use Household members: spouse Communication Needs: Corrective Lenses Pets and animals: No Current gender identity: decline to answer What is your relationship status?: How often do you talk on the phone with friends or family?: three or more times per week How often do you get together with friends or relatives?: once per week How often do you attend buddhist or church services?: decline to answer Do you belong to any clubs or organized social groups?: no Panel score (0-1 are the most socially isolated patients): 2 What type of physical activity do you participate in: decline to answer Duration: decline to answer Frequency: decline to answer Moira/Alevism: [employer] Special moira needs: No Seatbelt use: always Drive intox or ride w/intox local truck 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: No Do you feel safe at home: Yes Do you feel safe in your relationship?: Yes Exam Narrative Exam Narrative: Constitutional: well and [id number], pleasant, conversing normally HENT: head atraumatic/normocephalic/normal inspection, mucous membranes moist Eyes: conjunctiva normal, sclera normal, pupils 3mm b/l Neck: no stridor, normal ROM, trachea midline Chest: normal inspection Resp: normal work of breathing, speaking in full sentences Cardio: normal rate, normal rhythm GI: abdomen soft, nontender, nondistended Back: normal inspection, no rash Skin: warm, dry, normal color, no rash Neuro: alert, not altered, grossly non-focal, normal tone Ext: no edema, no posterior calf tenderness to palpation Psych: normal mood, normal affect, normal behavior Course Vital Signs Vital signs: Vital Signs Respiratory Rate 18 09/29/20 09:51 Respiratory Rate 18 09/29/20 09:51 Respiratory Effort Non-Labored 09/29/20 09:51 Pain Level 1 09/29/20 09:51 Lab/Test Results Lab/Test Results: Laboratory Tests Range/Units 09/29/20 09:35 WBC (4.4-10.8) 10^3/uL 8.99 RBC (4.36-5.78) 10^6/uL 5.59 Hgb (13.5-17.5) g/dL 16.4 Hct (40.0-50.0) % 50.2 H MCV (80-95) fL 89.8 MCH (27.0-33.0) pg 29.3 MCHC (32.0-36.0) % 32.7 RDW (11.8-14.1) % 13.3 Plt Count (130-400) 10^3/uL 286 MPV (8.0-11.0) fL 9.5 Immature Gran % 0.2 Neutrophils % 53.0 Lymphocytes % 35.0 Monocytes % 10.0 Eosinophils % 1.4 Basophils % 0.4 Nucleated RBC % % 0 Absolute Neutrophils (1.2-6.7) 10^3/uL 4.75 Absolute Lymphocytes (1.2-3.4) 10^3/uL 3.15 Absolute Monocytes (0.1-0.8) 10^3/uL 0.90 H Absolute Eosinophils (0.0-0.7) 10^3/uL 0.13 Absolute Basophils (0.0-0.2) 10^3/uL 0.04
--- NOTE | 2020-09-29 10:11 | RESPIRATORY ---
RT called to ER for possible patient needing HF System per low SpO2 on 4L with finger probe. RT tried an ear probe on patient and SpO2 read 100% on 4L NC. RT titrated patient to 2L NC and waited 15 mins before obtainin ABG per Dr request. ABG ran and reported to Dr. Sivan Cortes, RT asked if needed anything else as ABG was good and patient did not need HF System. RT able to leave as Dr said she was all set and would titrate patient to RA as SpO2 with ear probe was reading 96% on 1L NC.
[2020-09-29 10:16] LABS: NT-proBNP 46 pg/mL (<300)
[2020-09-29 10:23] LABS: ALT 48 U/L (16-63); AST 22 U/L (15-37); Albumin 3.8 g/dL (3.4-5.0); Alkaline Phosphatase 103 U/L (46-116); Anion Gap 5.8 mmol/L (3-11); BUN 18 mg/dL (7-18); Bilirubin, Total 0.6 mg/dL (0.2-1.0); CO2 29.2 mmol/L (21.0-32.0); CREATININE 1.38 mg/dL (0.70-1.30); Calcium 9.2 mg/dL (8.5-10.1); Chloride 100 mmol/L (98-107); Estimated GFR 50.37 (mL/min/1.73m2); Ferritin 57 ng/mL (26-388); Glucose 136 mg/dL (74-106); Potassium 3.9 mmol/L (3.5-5.1); Sodium 135 mmol/L (136-145)
[2020-09-29 10:24] LABS: D-Dimer 2067 ng/mlFEU (<500)
[2020-09-29 10:26] LABS: Troponin I < 0.05 ng/mL (<0.06)
[2020-09-29 10:38] LABS: LDH 143 U/L (85-227)
[2020-09-29] MEDS: Normal Saline - Diluent 50 ML VIAL IV (10:57)
[2020-09-29] MEDS: Omnipaque 350 MG/ML 100 ML BTL IJ (10:58)
--- NOTE | 2020-09-29 11:13 | DI.CT_ITS ---
EXAM: CT CHEST PE CTA CLINICAL HISTORY: chest tightness, hypoxia. TECHNIQUE: Imaging Protocol: CT angiography of the chest was performed using pulmonary embolus juan diego col. Multi planar reconstructions were performed. CONTRAST MATERIAL: Intravenous: Omnipaque 350 Contrast volume:100 ml Oral: None COMPARISON: CT ABD PELVIS WITH CONTRAST from 07/05/2017 FINDINGS: CHEST: PULMONARY ARTERIES: There are no intraluminal filling defects to suggest acute pulmonary emboli. LUNGS: There is no evidence of pulmonary infarction. Mild infiltrate noted in the right lung base po sterior basal segment right lower lobe. No pleural effusions. MEDIASTINUM: There is no hilar nor mediastinal adenopathy. Visualized thyroid unremarkable. CARDIAC: Heart size is normal. There is no pericardial effusion.Caliber of the thoracic aorta is wit hin normal limits. There is no shift of the interventricular septum. No evidence of aortic dissection. OSSEOUS: No significant osseous lesions.. IMPRESSION: 1. No evidence of acute pulmonary emboli. No evidence of pulmonary infarction. No evidence of obvio us right heart failure. 2. Mild infiltrate posterior basal segment right lower lobe. No pleural effusions. No intrathoracic adenopathy. 3. No evidence of aortic dissection. No pericardial effusion. Report called by myself to ER provider RADIATION DOSE DELIVERED: 717.79mGy.cm Total DLP 717.79mGy.cm Total DLP DATA REPOSITORY: All CT scans at this facility are submitted to the National Radiology Data Registry (NRDR) Dose Index Registry (DIR) with the [employer] (ACR). RADIATION OPTIMIZATION: All CT scans at this facility use at least one of these dose optimization te chniques: automated exposure control; mA and/or kV adjustment per patient size (includes targeted exa ms where dose is matched to clinical indication); or iterative reconstruction.
[2020-09-29 13:00] LABS: Troponin I < 0.05 ng/mL (<0.06)
--- NOTE | 2020-09-29 13:34 | NUR.NOTE ---
Addendum entered by Romelia Pat 09/29/20 13:35: Requisition for stress test sent to [facility]. Notification of the referral faxed to [facility] and also given to Care Management. Romelia Pat Original Note: Nursing Note: Referral faxed to [facility] for follow up this week. Romelia Pat
[2020-09-29] MEDS: Doxycycline Hyclate 100 MG CAP PO (13:53)
--- NOTE | 2020-09-29 15:00 | NUR.NOTE ---
Nursing Note: With Dr. Siomara Cortes permission, changed status to AMNicole. Romelia Pat
[2020-09-29 20:10] LABS: COVID-19 RT-PCR UVMMC Result Negative (Negative)
--- NOTE | 2020-09-30 10:01 | NUR.NOTE ---
Nursing Note: Negative COVID result given over the phone after identity confirmed at 1003.
== END 2020-09-29 13:56 | disposition left against medical advice (07) ==
PROVIDERS: Emergency Provider Student in an Organized Health Care Education/Training Program; PCP Family Medicine
DX: J18.8 Other pneumonia, unspecified organism (principal); R07.89 Other chest pain; Z53.29 Procedure and treatment not carried out because of patient's decision for other reasons; Z03.818 Encounter for observation for suspected exposure to other biological agents ruled out; I42.9 Cardiomyopathy, unspecified; I10 Essential (primary) hypertension
CPT/HCPCS: 36415; 71275; 80053; 82805; 93005; 99285; U0003; 36600; 82728; 83615; 83880; 84484; 85025; 85379; 93010; J3490

== ENCOUNTER 2020-10-02 01:04 | Outpatient (CLI) | payer MEDICARE, OTHER, SELFPAY ==
--- NOTE | 2020-10-02 13:00 | ETT_ITS ---
APPROVED REPORT Exam: Exercise Treadmill Patient Location: Out-Patient Room/Bed: Stress Nurse: Sherry Shin RN BMI: 36.25 Baseline Rhythm: Sinus Rhythm Comment: occasional PVC Indications: Chest pain. Medical History Medical History: HTN, HLD, Cardiomyopathy, Rheumatoid arthritis, ETOH, Sleep apnea (does not use CPAP ), ED Cardiac Medications: Lisinopril-Hydrochlorothiazide, Amoxicillin, Sildenafil PRN Allergies: No known drug allergies Cardiac Risk Factors: FHX of CAD, HTN, Hyperlipidemia, Smoking (former) Previous Cardiac Procedures: None. Pretest Chest Pain Characteristics: No chest pain Exercise History: Sedentary Physical Disabilities: None. Lung Sounds: Clear to auscultation Heart Sounds: Regular Stress Test Details Test: Exercise stress testing was performed using a Gabriel protocol. Rest Stress HR Resting HR Supine: 81 bpm Max Heart Rate (APMHR): 146 bpm Resting HR Standin bpm Target HR (85% APMHR): 124 bpm Max HR Achieved: 158 bpm % of APMHR: 108 Recovery HR: 103 bpm HR response to stress: Normal HR response to stress BP Resting BP Supine: 126/70 mmHg Resting BP Standin/80 mmHg Max BP: 166/72 mmHg Recovery BP: 132/80 mmHg BP response to stress: Normal blood pressure response to stress. ECG Resting ECG: Sinus Rhythm Ectopy: occasional PVC. Stress ECG: Sinus Tachycardia ST Change: no significant ST segment changes noted. Arrhythmia: multifocal PVCs. Recovery ECG: Sinus Tachycardia Recovery ST Change: no significant ST segment changes noted. Recovery Arrhythmia: multifocal PVCs, couplet Clinical Reason for Termination: Dyspnea Stress Symptoms: Dyspnea Exercise duration: 4 min27 sec Highest Stage Reached: Stage 2: 2.5 mph at 12% grade. Exercise capacity: 6.36 METs Stress ECG Conclusion 1. The patient exercised for 4 minutes (6 METS). Stress test was stopped due to dyspnea. 2. The patient had no symptoms suggestive of ischemia 3. There was no evidence of ischemia on the ECG portion of the exam. 4. The Crooks Score (4) estimates an annual cardiovascular mortality of 1% and a five year survival of 94%. Using the Crooks Score there is an intermediate probability of angiographic coronary disease. Stress Test Summary STAGE Time (mins) Speed (mph) Grade (%) HR BP SYMPTOMS METS Supine 81 126/70 Standing 92 132/80 1 3 1.7 10 133 138/76 4.6 2 6 2.5 12 Dyspnea. SpO2 87% 7 1 min recovery 140 166/72 SpO2 96% 3 min recovery 110 158/74 6 min recovery 105 134/78 9 min recovery 103 132/80
== END 2020-10-02 01:24 ==
PROVIDERS: PCP Family Medicine; Visit Provider Student in an Organized Health Care Education/Training Program
DX: R07.9 Chest pain, unspecified (principal); I10 Essential (primary) hypertension; E78.5 Hyperlipidemia, unspecified; Z82.49 Family history of ischemic heart disease and other diseases of the circulatory system; Z87.891 Personal history of nicotine dependence
CPT/HCPCS: 93016; 93018; 93017

== ENCOUNTER 2021-01-09 07:13 | Emergency (ER) | payer MEDICARE, OTHER, SELFPAY ==
[2021-01-09] VITALS (65 sets, daily range): BP systolic 120–154; BP diastolic 79–97; PULSE 54–89; RESP 16–27; TEMP 36.4; O2SAT 89–97
--- NOTE | 2021-01-09 07:15 | RT.EKG_ITS ---
APPROVED REPORT Exam: Resting ECG Patient Location: E HR:55 bpm ECG Measurements Heart Rate 55 AXIS MD 206 P 44 QRSd 87 QRS 20 QT 439 T 34 QTc 419 Conclusion Sinus bradycardia...rate< 60
[2021-01-09 07:42] LABS: Abs Immature Grans 0.07 10^3/uL (0.0-0.06); Absolute Basophil Count 0.04 10^3/uL (0.0-0.2); Absolute Eosinophil Count 0.06 10^3/uL (0.0-0.7); Absolute Lymphocyte Count 2.27 10^3/uL (1.2-3.4); Absolute Monocyte Count 0.72 10^3/uL (0.1-0.8); Absolute Neutrophil Count 7.55 10^3/uL (1.2-6.7); Basophils % 0.4; Eosinophils % 0.6; HCT 46.4 % (40.0-50.0); HGB 15.5 g/dL (13.5-17.5); Immature Grans % 0.7; Lymphocytes % 21.2; MCH 29.6 pg (27.0-33.0); MCHC 33.4 % (32.0-36.0); MCV 88.7 fL (80-95); MPV 9.4 fL (8.0-11.0); Monocytes % 6.7; Neutrophils % 70.4; Nucleated RBC 0 %; Platelet Count 263 10^3/uL (130-400); RBC 5.23 10^6/uL (4.36-5.78); RDW 13.2 % (11.8-14.1); WBC 10.71 10^3/uL (4.4-10.8)
--- NOTE | 2021-01-09 07:45 | DI.CT_ITS ---
EXAM: CT ABDOMEN PELVIS W CLINICAL HISTORY: mid to upper abdomen pain. TECHNIQUE: Imaging Protocol: Axial computed tomography images with coronal and sagittal reformatted images were created and reviewed CONTRAST MATERIAL: Intravenous: Omnipaque 350 Contrast volume:100 ml Oral: no COMPARISON: CT CT CHEST PE CTA from 09/29/2020 FINDINGS: ABDOMEN: Lung Bases: Scarring right lung base. Liver: Mild fatty infiltration. Mildly enlarged.. No measurable mass. Gallbladder and biliary tract: No radiodense calculus or dilation. Pancreas: Normal density, no abnormal calcifications or inflammatory process. Spleen: Normal. Kidneys: Normal size, contour and axis. Right kidney multiple cysts. No radiodense stones or obstru ctive uropathy. No masses seen. Adrenal glands: No masses seen. Abdominal Aorta: Abdominal portion non-dilated. Mild calcification. PELVIS: Bladder: Symmetric distention, no gross wall thickening. Bowel: Normal appendix. Normal quantity of stool. Mild diverticulosis distal descending colon. No obstruction or bowel wall thickening. Stomach unremarkable. Peritoneal cavity: No ascites, collection or mesenteric inflammatory response. Bones: Degenerative changes, greatest at L5-S1. Reproductive organs: Enlarged prostate. Mild bladder wall thickening.. Lymph nodes: Unremarkable. Small bilateral fatty containing inguinal hernias. Impression: No acute abnormality. RADIATION DOSE DELIVERED: 1,539.73mGy.cm Total DLP DATA REPOSITORY: All CT scans at this facility are submitted to the National Radiology Data Registry (NRDR) Dose Index Registry (DIR) with the [employer] ([employer]). RADIATION OPTIMIZATION: All CT scans at this facility use at least one of these dose optimization te chniques: automated exposure control; mA and/or kV adjustment per patient size (includes targeted exa ms where dose is matched to clinical indication); or iterative reconstruction.
--- NOTE | 2021-01-09 07:57 | W.ED.GENAD ---
Discharge Plan Disposition Patient Disposition: HOME Condition: Stable Discharge Details Clinical Impression: Abdominal pain, Alcoholic gastritis Primary Care Provider: Nestor Barry ED Provider: Tc Nelson Raymond Meds and New Rx's Prescriptions: New omeprazole 20 mg capsule,delayed release(DR/EC) 20 mg PO DAILY Qty: 30 RF: 0 Continued lisinopril-hydrochlorothiazide 10-12.5 mg tablet 1 tab PO DAILY Qty: 90 RF: 3 sildenafil 100 mg tablet 50 - 100 mg PO DAILY MDD 100 mg PRN (Reason: sexual activity) Qty: 6 RF: 5 acetaminophen [Tylenol] 325 mg Capsule 650 mg PO Q6H PRNQty: 0 RF: 0 Discharge Instructions Instructions: Gastritis (ED) Additional Instructions: your blood work and cat scan did not show any concerning findings you can take mylanta as needed for upper abdominal discomfort, follow dosing instructions on packaging follow up with your primary care within a week if you feel more ill, have worsening pain or persistent vomit return to the emergency department Medical Decision Making 75 yo male with hx of htn, sleep apnea, who comes in with upper to mid abdomen pain with intermittent n/v since last night. STates he sometimes has a beer but had more than this yeseterday during the day. Denies fevers, chest pain, dyspnea, changes in bowel habits and no dysuria. Has tenderness to the mid abdomen and upper abdomen without guarding or rebound. no lower abdomen tenderness. Denies having pain like this in the past. Suspect gastritis vs cholecystitis vs pancreatitis. Will obtain labs and ct to further evaluate, has no pain out of proportion to suggest mesenteric ischemia imaging and labs unremarkable, he feels better and only has mild epigastric tenderness, no guarding or rebound. He had more alcohol than he is used to yesterday so suspect alcohol induced gastritis. He is stable for d/c and is comfortable with this plan and f/u with pcp, return precautions given Differential Diagnosis Differential Diagnosis: cholecystitis, pancreatitis, sbo Medical Records Medical records reviewed: Yes I reviewed the patient's medical records. Imaging Data Radiologic Study: Attestation: I personally reviewed and interpreted this imaging study as follows: Imaging: CT Scan Radiologist's impression: no acute findings Lab Data Lab results reviewed: Yes I reviewed the patient's lab results. ECG Data Attestation: I personally reviewed and interpreted this ECG (s) as follows: Prior ECG tracings: available for review Interpretation: sinus bradycardia, heart rate of 55, qtc [address] t wave ischemic findings HPI General Mode of arrival: ambulatory. Date/Time Provider Initiated Documentation: 01/09/21 07:31. Limitations to Documentation: no limitations. Information obtained by: patient. History of Present Illness 75 year old M presents to the emergency department with the chief complaint of abdomen pain, described as moderate, with intensity rated at 7. Quality is described as stabbing, and is localized to the abdomen. Patient reports no radiation. and it has been constant. No relieving factors improve symptom(s), No exacerbating factors reported . Patient did receive the following treatments prior to arrival, none Related Data Home Medications Medication Instructions Recorded Confirmed acetaminophen [Tylenol] 650 mg PO Q6H PRN #0 cap 03/07/19 01/09/21 lisinopril 10 1 tab PO DAILY #90 tab 02/28/20 01/09/21 mg-hydrochlorothiazide 12.5 mg tablet sildenafil 100 mg tablet 50 - 100 mg PO DAILY PRN #6 tab 08/14/20 01/09/21 MDD 100 mg omeprazole 20 mg PO DAILY #30 cap 01/09/21 Previous Rx's Medication Instructions Recorded acetaminophen [Tylenol] 650 mg PO Q6H PRN #0 cap 03/07/19 lisinopril 10 1 tab PO DAILY #90 tab 02/28/20 mg-hydrochlorothiazide 12.5 mg tablet sildenafil 100 mg tablet 50 - 100 mg PO DAILY PRN #6 tab 08/14/20 MDD 100 mg omeprazole 20 mg PO DAILY #30 cap 01/09/21 Allergies Allergy/AdvReac Type Severity Reaction Status Date / Time latex Allergy Mild Runny nose Verified 01/09/21 07:22 and eyes ENVIROMENTAL Allergy Intermediate Uncoded 01/09/21 07:22 General Stated Complaint: Abd Prob JACINTO: 3 Review of Systems All systems reviewed & are unremarkable except as noted in HPI and below Constitutional Constitutional: Denies chills, Denies fever(s) and Denies weakness Cardiovascular Cardiovascular: Denies chest pain and Denies dyspnea Respiratory Respiratory: Denies cough and Denies dyspnea Musculoskeletal Musculoskeletal: Denies joint swelling Neurologic Neurologic: Denies weakness [facility] Medical History (Updated 01/09/21 @ 09:52 by Tc Nelson MD) Acne rosacea Actinic keratosis Allergic rhinitis Back pain BPH (benign prostatic hyperplasia) Chronic alcohol use Colon polyp Deviated septum Diverticulitis large intestine w/o perforation or abscess w/o bleeding Erectile disorder due to medical condition in male Fatty liver Hyperlipidemia Hypertension Sleep apnea Syncope Ulcerative colitis Urticaria Surgical History Arthroplasty of knee 05/05; b/l Colonoscopy - MAC (07/20/17) History of arthroplasty of left shoulder Family History Mother , 92 Mental disorder ALZHEIMERS Father , 72 CHF (congestive heart failure) Heart disease Brother No problems noted. Maternal Grandfather , 86 No problems noted. Paternal Grandfather , 84 No problems noted. Maternal Grandmother No problems noted. Paternal Grandmother No problems noted. Sister Breast cancer Sister No problems noted. Sister No problems noted. Sister No problems noted. Sister No problems noted. Sister No problems noted. Son No problems noted. Son No problems noted. Daughter No problems noted. Daughter No problems noted. Daughter , ACCIDENTAL at age 35. No problems noted. Social History Smoking/Tobacco Use Status: Former Tobacco Use Smoking risk assessment performed?: Yes Alcohol Intake: current Alcohol Intake frequency: a few times a week Drug use: Never Substance use type: does not use Household members: spouse Communication Needs: Corrective Lenses Pets and animals: No Current gender identity: decline to answer What is your relationship status?: How often do you talk on the phone with friends or family?: three or more times per week How often do you get together with friends or relatives?: once per week How often do you attend buddhist or cheondoism services?: decline to answer Do you belong to any clubs or organized social groups?: no Panel score (0-1 are the most socially isolated patients): 2 What type of physical activity do you participate in: decline to answer Duration: decline to answer Frequency: decline to answer Moira/Scientology: Mandaeism Special moira needs: No Seatbelt use: always Drive intox or ride w/intox city bus driver: No Do you feel safe at home: Yes Do you feel safe in your relationship?: Yes Exam Const General: no acute distress Orientation: alert HENMT Head: normal to inspection Ears: external ears normal General nose exam: external nose normal Mouth: moist mucous membranes Eyes General: appearance normal, both eyes and all related structures Neck Neck: normal visual inspection Resp Effort & Inspection: normal respiratory effort and able to speak in complete sentences Cardio Rate: regular rate GI Palpation: tender Skin General skin exam: no rashes or lesions noted Neuro General: patient alert and patient oriented x3 Extrem General: normal to inspection Psych Mental Status: mental status grossly normal Course Vital Signs Vital signs: Vital Signs Temperature 36.4 C L 01/09/21 07:18 Pulse 87 01/09/21 07:18 Respiratory Rate 18 01/09/21 07:18 Blood Pressure 120/80 01/09/21 07:18 Pulse Oximetry 97 01/09/21 07:18 Temperature 36.4 C L 01/09/21 07:18 Pulse 64 01/09/21 07:44 Respiratory Rate 18 01/09/21 07:18 Respiratory Effort Non-Labored 01/09/21 07:23 Blood Pressure 146/79 H 01/09/21 07:44 Blood Pressure Mean 96 01/09/21 07:44 Pulse Oximetry 93 01/09/21 07:50 Pain Level 8 01/09/21 07:18
[2021-01-09 08:00] LABS: ALT 58 U/L (16-63); AST 22 U/L (15-37); Albumin 3.5 g/dL (3.4-5.0); Alkaline Phosphatase 102 U/L (46-116); Anion Gap 8.3 mmol/L (3-11); BUN 18 mg/dL (7-18); Bilirubin, Direct 0.1 mg/dL (0.0-0.2); Bilirubin, Total 0.5 mg/dL (0.2-1.0); CO2 26.7 mmol/L (21.0-32.0); CREATININE 1.2 mg/dL (0.70-1.30); Calcium 9.2 mg/dL (8.5-10.1); Chloride 101 mmol/L (98-107); Estimated GFR 59.18 (mL/min/1.73m2); Glucose 139 mg/dL (74-106); Lipase 168 U/L (73-393); Magnesium 1.9 mg/dL (1.8-2.4); Potassium 4.1 mmol/L (3.5-5.1); Sodium 136 mmol/L (136-145); Total Protein 8.9 g/dL (6.4-8.2)
[2021-01-09 08:01] LABS: Troponin I < 0.05 ng/mL (<0.06)
[2021-01-09 08:07] LABS: INR 1.1 (0.9-1.1); PTT Activated 27.4 sec (21.0-27.5)
[2021-01-09] MEDS: HYDROmorphone 2 MG/ML VIAL 1 MG IVP (08:14)
[2021-01-09 08:15] LABS: Bilirubin Negative (Negative); Blood Negative (Negative); Clarity Clear (Clear); Glucose Negative (Negative); Ketones Negative (Negative); Leukocyte Esterase Negative (Negative); Nitrite Negative (Negative); Specific Gravity >= 1.030 (1.005-1.025); Urobilinogen 0.2 EU/dL (Up TO 0.2)
[2021-01-09] MEDS: Ondansetron 4 MG/2 ML VIAL IVP (08:15)
[2021-01-09] MEDS: Omnipaque 350 MG/ML 100 ML BTL IJ (09:12)
[2021-01-09] MEDS: Normal Saline - Diluent 50 ML VIAL IV (09:14)
--- NOTE | 2021-01-09 10:05 | NUR.NOTE ---
Nursing Note: Referral faxed to PCP for follow up within 1 week for abd pain. Romelia Pat
== END 2021-01-09 10:04 | disposition home or self-care (01) ==
PROVIDERS: Emergency Provider Emergency Medicine; PCP Family Medicine
DX: K29.20 Alcoholic gastritis without bleeding (principal); R11.2 Nausea with vomiting, unspecified; R10.13 Epigastric pain; F10.10 Alcohol abuse, uncomplicated
CPT/HCPCS: 36415; 36416; 80053; 82962; 83690; 93005; 96374; 96375; 99285; 74177; 81003; 82248; 83735; 84484; 85025; 85610; 85730; 93010; 99284; J2405; J3490

== ENCOUNTER 2021-01-10 06:21 | Observation (INO) | payer MEDICARE, OTHER, SELFPAY ==
[2021-01-10] VITALS (41 sets, daily range): BP systolic 100–145; BP diastolic 43–85; PULSE 65–116; RESP 18–30; TEMP 36–38.1; O2SAT 85–97
--- NOTE | 2021-01-10 06:45 | NUR.NOTE ---
Nursing Note:Bedside US by Dr. Cortes
--- NOTE | 2021-01-10 06:50 | W.ED.GENAD ---
Discharge Plan Disposition Patient Disposition: [facility] INPATIENT Condition: Stable Discharge Details Clinical Impression: Acute cholecystitis Admit Date/Time: 01/10/21 08:57 Admit Provider: Otilio Hua Attending Provider: Otilio Hua Primary Care Provider: Nestor Barry ED Provider: Héctor Moise Discharge Data Discharge Date/Time-TO BE ENTERED AT DEPARTURE: 01/10/21 09:55 Medical Decision Making <Carlos Eduardo Cortes MD - Last Filed: 01/16/21 23:02> 654??75-year-old male here with right upper quadrant abdominal pain. Seen here yesterday for upper abdominal pain and had negative work-up including diagnostic labs and CT imaging. Pain has persisted and now worse in localized to right abdomen with associated nausea and vomiting. Patient is tachycardic, normotensive, afebrile. Patient is tender in his right upper quadrant with positive Barth sign. A bedside [id number] ultrasound was performed by me: Dilated gallbladder with suggestion of hyperechoic stone versus sludge, no pericholecystic fluid, positive sonographic Barth sign. I have paged the general surgeon to discuss case. Will check labs including LFTs and lipase. I have called radiology department to see if we have capability for official ultrasound today. Last oral intake was black coffee this morning at 5 AM, no solids today, will maintain n.p.o. and start maintenance IV fluids. 731--I spoke with Dr. Hua, on-call general surgeon about the case. Discussed ED presentation and course thus far. process safety engineering technologist is available and will be coming in to perform ultrasound. Labs pending. Lactate normal and urinalysis nondiagnostic. I did call and speak with the patient's , Louann at [phone] and updated her regarding plan. She is planning on waiting in her car in the parking lot until further update. <Héctor Moise MD - Last Filed: 01/10/21 09:04> Received signout from Dr. Cortes. Please see his note regarding details of initial presentation, exam, plan of care. Patient's laboratories are notable for a white blood cell count of 18, total bili 1.3. His ultrasound shows evidence of acute cholecystitis with thickened gallbladder wall and numerous gallstones. Patient n.p.o. since black coffee at 5 AM. He had a screening EKG yesterday. I have ordered Zosyn and he continues with fluids. He has not yet required analgesia, but did spike a temperature to 38.1 and was given parenteral acetaminophen. HPI <Carlos Eduardo Cortes MD - Last Filed: 01/16/21 23:02> General Mode of arrival: ambulatory. Date/Time Provider Initiated Documentation: 01/10/21 06:34. Limitations to Documentation: no limitations. Information obtained by: patient. HPI Narrative: 75-year-old male with history of hypertension presents with chief complaint of abdominal pain. Pain started yesterday. He was seen here in the emergency department and had diagnostic work-up including CT imaging of the abdomen as well as labs. Pain yesterday was more central upper abdomen and is now migrated to more right abdomen. Pain more severe today. He has associated nausea and intermittent vomiting. No fever. No urinary symptoms. Related Data Home Medications Medication Instructions Recorded Confirmed acetaminophen [Tylenol] 650 mg PO Q6H PRN #0 cap 03/07/19 01/10/21 lisinopril 10 1 tab PO DAILY #90 tab 02/28/20 01/10/21 mg-hydrochlorothiazide 12.5 mg tablet omeprazole 20 mg PO DAILY #30 cap 01/09/21 oxycodone-acetaminophen 1 tab PO Q4H PRN PRN #24 tab 01/10/21 Previous Rx's Medication Instructions Recorded acetaminophen [Tylenol] 650 mg PO Q6H PRN #0 cap 03/07/19 lisinopril 10 1 tab PO DAILY #90 tab 02/28/20 mg-hydrochlorothiazide 12.5 mg tablet omeprazole 20 mg PO DAILY #30 cap 01/09/21 oxycodone-acetaminophen 1 tab PO Q4H PRN PRN #24 tab 01/10/21 Allergies Allergy/AdvReac Type Severity Reaction Status Date / Time latex Allergy Mild Runny nose Verified 01/10/21 06:30 and eyes ENVIROMENTAL Allergy Intermediate Uncoded 01/10/21 06:30 General Stated Complaint: Abd Prob JACINTO: 2 Review of Systems <Carlos Eduardo Cortes MD - Last Filed: 01/16/21 23:02> All systems reviewed & are unremarkable except as noted in HPI and below Constitutional Constitutional: Denies fever(s) Gastrointestinal Gastrointestinal: Reports as per HPI PFSH <Carlos Eduardo Cortes MD - Last Filed: 01/16/21 23:02> Medical History (Updated 01/10/21 @ 09:04 by Héctor Moise MD) Acne rosacea Actinic keratosis Allergic rhinitis Back pain BPH (benign prostatic hyperplasia) Chronic alcohol use Colon polyp Deviated septum Diverticulitis large intestine w/o perforation or abscess w/o bleeding Erectile disorder due to medical condition in male Fatty liver Hyperlipidemia Hypertension Sleep apnea Syncope Ulcerative colitis Urticaria Surgical History Arthroplasty of knee 05/05; b/l Colonoscopy - MAC (07/20/17) History of arthroplasty of left shoulder Family History Mother , 92 Mental disorder ALZHEIMERS Father , 72 CHF (congestive heart failure) Heart disease Brother No problems noted. Maternal Grandfather , 86 No problems noted. Paternal Grandfather , 84 No problems noted. Maternal Grandmother No problems noted. Paternal Grandmother No problems noted. Sister Breast cancer Sister No problems noted. Sister No problems noted. Sister No problems noted. Sister No problems noted. Sister No problems noted. Son No problems noted. Son No problems noted. Daughter No problems noted. Daughter No problems noted. Daughter , ACCIDENTAL at age 35. No problems noted. Social History Smoking/Tobacco Use Status: Former Tobacco Use Smoking risk assessment performed?: Yes Alcohol Intake: current Alcohol Intake frequency: a few times a week Alcohol type: beer Drug use: Never Substance use type: does not use Household members: spouse Communication Needs: Corrective Lenses Pets and animals: No Current gender identity: decline to answer What is your relationship status?: How often do you talk on the phone with friends or family?: three or more times per week How often do you get together with friends or relatives?: once per week How often do you attend amish or anabaptism services?: decline to answer Do you belong to any clubs or organized social groups?: no Panel score (0-1 are the most socially isolated patients): 2 What type of physical activity do you participate in: decline to answer Duration: decline to answer Frequency: decline to answer Moira/Tenriism: Sikh Special moira needs: No Seatbelt use: always Drive intox or ride w/intox test driver: No Do you feel safe at home: Yes Do you feel safe in your relationship?: Yes Exam <Carlos Eduardo Cortes MD - Last Filed: 01/16/21 23:02> Const General: cooperative and no acute distress HENMT Mouth: moist mucous membranes Eyes Conjunctivae: normal conjunctivae Sclera: normal sclerae Neck Neck: trachea midline Resp Auscultation: clear to auscultation bilaterally, no rales, no rhonchi and no wheezes Cardio Rhythm: regular rhythm GI Palpation: soft, not firm, no guarding, no masses, not rigid and tender in the RUQ and Barth's sign positive; with no rebound tenderness Auscultation: normal bowel sounds Skin General skin exam: no rashes or lesions noted Neuro General: patient alert, patient awake, patient oriented x3 and tone normal Extrem General: no edema Psych Appearance: grossly normal Mental Status: mental status grossly normal Course <Carlos Eduardo Cortes MD - Last Filed: 01/16/21 23:02> Vital Signs Vital signs: Vital Signs Temperature 37.1 C 01/10/21 06:25 Pulse 116 H 01/10/21 06:25 Respiratory Rate 22 01/10/21 06:25 Blood Pressure 140/79 01/10/21 06:25 Pulse Oximetry 93 01/10/21 06:25 Temperature 37.1 C 01/10/21 06:25 Temperature Source Skin 01/10/21 06:25 Pulse 116 H 01/10/21 06:25 Respiratory Rate 22 01/10/21 06:25 Respiratory Effort Non-Labored 01/10/21 06:40 Blood Pressure 140/79 01/10/21 06:25 Blood Pressure Position Sitting 01/10/21 06:25 Pulse Oximetry 93 01/10/21 06:25 Oxygen Delivery Method Room Air 01/10/21 06:25 Oxygen Flow Rate 0 01/10/21 06:25 Pain Level 8 01/10/21 06:42 Sign Out <Carlos Eduardo Cortes MD - Last Filed: 01/16/21 23:02> Sign Out Data: Sign Out Comment: Follow-up on ultrasound, labs, reassess patient for disposition, discuss case with surgery Last updated by Carlos Eduardo Cortes MD at 01/10/21 08:33
--- NOTE | 2021-01-10 07:00 | DI.US_ITS ---
EXAM: US ABDOMEN LIMITED CLINICAL HISTORY: pain, RUQ TECHNIQUE: Ultrasound of right upper abdomen performed using standard protocol. COMPARISON: US Cardiac from 04/29/[address] ABDOMEN PELVIS W from 01/09/2021 FINDINGS: There is no ascites evident. LIVER: Liver is hyperechoic indicating steatosis. No discrete focal hepatic lesions identified. GALLBLADDER/BILIARY: There are multiple calculi seen within the gallbladder and the gallbladder wall is thickened to 5 millimeters. The common hepatic duct isslightly prominent, measuring 7mm at the level of royce hepatis. PANCREAS: Poorly visualized due to overlying bowel gas. RIGHT KIDNEY:Multiple cysts in the right kidney. The largest measures 12 cm. No solid masses in the right kidney. Left kidney not scanned ABDOMINAL AORTA: There is no evidence of abdominal aortic aneurysm. IVC: Normal diameter where visualized. IMPRESSION: 1. Gallbladder is distended and contains numerous gallstones with gallbladder wall edema and mild pe richolecystic fluid. 2. Common bile duct measurement is 7 millimeters. 3. Findings are consistent with acute cholecystitis. Hepatic steatosis noted DATA REPOSITORY:
[2021-01-10 07:11] LABS: Bilirubin Negative (Negative); Blood Trace-lysed (Negative); Clarity Clear (Clear); Glucose Negative (Negative); Ketones Negative (Negative); Leukocyte Esterase Negative (Negative); Nitrite Negative (Negative); Specific Gravity 1.025 (1.005-1.025); Urobilinogen 0.2 EU/dL (Up TO 0.2)
[2021-01-10 07:11] LABS: Lactate 0.9 mmol/L (0.6-1.4)
[2021-01-10] MEDS: Lactated Ringers 1,000 ML 125 ML IV (07:11)
[2021-01-10 07:14] LABS: Abs Immature Grans 0.11 10^3/uL (0.0-0.06); Absolute Eosinophil Count 0.04 10^3/uL (0.0-0.7); Basophils % 0.3; Eosinophils % 0.2; HCT 48.3 % (40.0-50.0); HGB 16.2 g/dL (13.5-17.5); Immature Grans % 0.6; Lymphocytes % 14.9; MCH 29.7 pg (27.0-33.0); MCHC 33.5 % (32.0-36.0); MCV 88.5 fL (80-95); MPV 9.8 fL (8.0-11.0); Monocytes % 11.9; Neutrophils % 72.1; Nucleated RBC 0 %; Platelet Count 265 10^3/uL (130-400); RBC 5.46 10^6/uL (4.36-5.78); RDW 13.4 % (11.8-14.1); RDW-SD 43.6 fL
[2021-01-10 07:17] LABS: Absolute Basophil Count 0.06 10^3/uL (0.0-0.2); Absolute Monocyte Count 2.24 10^3/uL (0.1-0.8); Absolute Neutrophil Count 13.55 10^3/uL (1.2-6.7)
[2021-01-10 07:24] LABS: ALT 49 U/L (16-63); AST 19 U/L (15-37); Albumin 3.4 g/dL (3.4-5.0); Alkaline Phosphatase 100 U/L (46-116); Anion Gap 12.2 mmol/L (3-11); BUN 15 mg/dL (7-18); Bilirubin, Total 1.3 mg/dL (0.2-1.0); CO2 23.8 mmol/L (21.0-32.0); CREATININE 1.3 mg/dL (0.70-1.30); Chloride 98 mmol/L (98-107); Estimated GFR 53.96 (mL/min/1.73m2); Glucose 126 mg/dL (74-106); Lipase 70 U/L (73-393); Potassium 4.1 mmol/L (3.5-5.1); Sodium 134 mmol/L (136-145); Total Protein 8.9 g/dL (6.4-8.2)
[2021-01-10 07:29] LABS: Bacteria Few HPF (Negative); C & S Indicated? No; Casts Negative LPF (Negative); Crystals Negative HPF (Negative); Epithelial Cells Few HPF (Negative); Mucus Moderate (Negative); RBC 0-2 HPF (0-2)
[2021-01-10 07:36] LABS: Diff Comment Agrees w/ Instrument; RBC Morphology Normal
--- NOTE | 2021-01-10 08:48 | DI.VRAD_ITS ---
Addendum created by Lili Yuan MD on 01/10/2021 8:56:57 AM EDT: THIS REPORT CONTAINS FINDINGS THAT MAY BE CRITICAL TO PATIENT CARE. The findings were verbally communicated via telephone conference with Dr. Moise at 8:56 AM EDT on 01/10/2021. The findings were acknowledged and understood. Initial report created on 01/10/2021 8:48:01 AM EDT: PROCEDURE INFORMATION: Exam: US Abdomen, Limited; Right Upper Quadrant Exam date and time: 01/10/2021 7:13 AM Age: 75 years old Clinical indication: Abdominal pain; Localized; Right upper quadrant (ruq) TECHNIQUE: Imaging protocol: US abdomen. Real time ultrasound with image documentation. Limited exam focused on the right upper quadrant. COMPARISON: CT ABDOMEN PELVIS W 01/09/2021 9:03 AM FINDINGS: Liver: There is a diffuse increase in hepatic parenchymal echogenicity, consistent with fatty infiltration. Gallbladder: Gallbladder is distended and contains gallstones. Gallbladder wall thickening 4.8 mm. Mild pericholecystic fluid . Positive sonographic Barth sign Common bile duct: Common bile duct 7.1 mm. Pancreas: The pancreas is poorly-visualized due to overlying bowel gas. Right kidney: Multiple simple cysts in the right kidney. Largest 12.2 cm. Additional Simple cysts in the right kidney 3.5 x 4.2 cm and 3.8 x 3 cm. IMPRESSION: 1. Gallbladder is distended and contains gallstones. Gallbladder wall thickening 4.8 mm. Mild pericholecystic fluid . 2. Common bile duct 7.1 mm. Findings consistent with acute cholecystitis Dictated and Authenticated by: Lili Yuan MD. Ordering:ANA MARÍA Thibodeaux MD
[2021-01-10 08:51] LABS: Source Nasal/Nares
[2021-01-10] MEDS: Normal Saline 1,000 ML 150 ML IV (08:53)
[2021-01-10] MEDS: ACETAMINOPHEN 1,000 MG/100 ML BTL 400 MG IVPB (08:54)
[2021-01-10] MEDS: PIPERACILLIN/TAZO 3.375 GM in Normal Saline 50 ML IVPB (09:10)
[2021-01-10 09:31] LABS: COVID-19 PCR Negative (Negative)
--- NOTE | 2021-01-10 09:34 | HPE_ITS ---
Date of service: 01/10/21 Time of Service: 09:00 Assessment and Plan Assessment and plan (1) Acute cholecystitis: Status: Acute Assessment and plan: 1) acute cholecystitis, admit to surgical observation 2) IV zosyn 3) IV analgesia 4) to OR for laparoscopic cholecystectomy, possible open. Procedure details and risks (including bleeding, leak, and ductal injury) discussed at length with patient. Patient is in agreement with the plan of care. Will proceed to the OR this morning. History of Present Illness Narrative: patient with abdominal pain. began night and patient was in the ER tuesday morning. Upper abdomen. squeezing, severe, and associated with nausea. Better with pain medication and time, but returned late last night, prompting a return visit. This time, pain was squeezing and severe in the RUQ. Not better with vomiting. Has had similar smaller episodes in the past. Pain started after consuming a ham and cheese sub with mayonaise. Called by ER for acute cholecystitis. Review of Systems Constitutional Constitutional: Denies body ache(s) and Denies fever(s) Eyes Eyes: Denies change in vision and Denies loss of vision ENT Ears, Nose, Mouth, and Throat: Denies vertigo and Denies dizziness Cardiovascular Cardiovascular: Denies chest pain and Denies dyspnea Respiratory Respiratory: Denies chest congestion, Denies cough and Denies dyspnea Gastrointestinal Gastrointestinal: Reports abdominal pain, Reports nausea and Reports vomiting Genitourinary Genitourinary: Denies difficulty urinating and Denies dysuria Musculoskeletal Musculoskeletal: Denies abnormal gait and Denies limited range of motion Integumentary/Breasts Skin/Breast: Reports dry skin, Denies rash and Denies skin ulcer Neurologic Neurologic: Denies abnormal gait, Denies confusion, Denies vertigo, Denies dizziness and Denies loss of vision Psychiatric Psychiatric: Denies anxiety, Denies confusion and Denies depression Hematologic/Lymphatic Hematologic/Lymphatic: Denies easy bleeding and Denies easy bruising COUNT INCLUDES THE [facility] Medical History (Updated 01/10/21 @ 09:04 by Héctor Moise MD) Acne rosacea Actinic keratosis Allergic rhinitis Back pain BPH (benign prostatic hyperplasia) Chronic alcohol use Colon polyp Deviated septum Diverticulitis large intestine w/o perforation or abscess w/o bleeding Erectile disorder due to medical condition in male Fatty liver Hyperlipidemia Hypertension Sleep apnea Syncope Ulcerative colitis Urticaria Surgical History Arthroplasty of knee 05/05; b/l Colonoscopy - MAC (07/20/17) History of arthroplasty of left shoulder Family History Mother , 92 Mental disorder ALZHEIMERS Father , 72 CHF (congestive heart failure) Heart disease Brother No problems noted. Maternal Grandfather , 86 No problems noted. Paternal Grandfather , 84 No problems noted. Maternal Grandmother No problems noted. Paternal Grandmother No problems noted. Sister Breast cancer Sister No problems noted. Sister No problems noted. Sister No problems noted. Sister No problems noted. Sister No problems noted. Son No problems noted. Son No problems noted. Daughter No problems noted. Daughter No problems noted. Daughter , ACCIDENTAL at age 35. No problems noted. Social History Smoking/Tobacco Use Status: Former Tobacco Use Smoking risk assessment performed?: Yes Alcohol Intake: current Alcohol Intake frequency: a few times a week Alcohol type: beer Drug use: Never Substance use type: does not use Household members: spouse Communication Needs: Corrective Lenses Pets and animals: No Current gender identity: decline to answer What is your relationship status?: How often do you talk on the phone with friends or family?: three or more times per week How often do you get together with friends or relatives?: once per week How often do you attend episcopalian or judaism services?: decline to answer Do you belong to any clubs or organized social groups?: no Panel score (0-1 are the most socially isolated patients): 2 What type of physical activity do you participate in: decline to answer Duration: decline to answer Frequency: decline to answer Moira/Mu-Ism: Buddhism Special moira needs: No Seatbelt use: always 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 Do you feel safe at home: Yes Do you feel safe in your relationship?: Yes Meds Home Medications and Allergies Allergies Allergy/AdvReac Type Severity Reaction Status Date / Time latex Allergy Mild Runny nose Verified 01/10/21 06:30 and eyes ENVIROMENTAL Allergy Intermediate Uncoded 01/10/21 06:30 Home Medications Medication Instructions Recorded Confirmed Type acetaminophen [Tylenol] 650 mg PO Q6H PRN #0 cap 03/07/19 01/10/21 Rx lisinopril 10 1 tab PO DAILY #90 tab 02/28/20 01/10/21 Rx mg-hydrochlorothiazide 12.5 mg tablet omeprazole 20 mg PO DAILY #30 cap 01/09/21 Rx Exam Narrative Exam Narrative: NAD RRR S1S2 CTA B S/ND/Obese/TTP RUQ + Barth's sign no mass/hernia No jaundice/icterus No C/C/E Mucous membranes moist No bruising/skin lesion Results Labs Result diagrams: 01/10/21 06:40 01/10/21 06:40 Labs: Laboratory Results - last 24 hr 01/10/21 01/10/21 01/10/21 06:35 06:40 06:40 WBC 18.80 H D RBC 5.46 Hgb 16.2 Hct 48.3 MCV 88.5 MCH 29.7 MCHC 33.5 RDW 13.4 Plt Count 265 MPV 9.8 Immature Gran % 0.6 Neutrophils % 72.1 Lymphocytes % 14.9 Monocytes % 11.9 Eosinophils % 0.2 Basophils % 0.3 Nucleated RBC % 0 Absolute Neutrophils 13.55 H Absolute Lymphocytes 2.80 Absolute Monocytes 2.24 H Absolute Eosinophils 0.04 Absolute Basophils 0.06 RBC Morphology Normal VBG Lactate Sodium 134 L Potassium 4.1 Chloride 98 Carbon Dioxide 23.8 Anion Gap 12.2 H BUN 15 Creatinine 1.3 Estimated GFR/1.73 m2 53.96 Glucose 126 H Calcium 9.0 Total Bilirubin 1.3 H AST 19 ALT 49 Alkaline Phosphatase 100 Total Protein 8.9 H Albumin 3.4 Lipase 70 Urine Color Luisa Urine Clarity Clear Urine pH 6.0 Ur Specific Baldwin 1.025 Urine Protein 30 H Urine Ketones Negative Urine Blood Trace-lysed H Urine Nitrite Negative Urine Bilirubin Negative Urine Urobilinogen 0.2 Ur Leukocyte Esterase Negative Urine RBC 0-2 Urine WBC 3-5 Ur Epithelial Cells Few Urine Crystals Negative Urine Bacteria Few Urine Casts Negative Urine Mucus Moderate Ur Culture Indicated? No Urine Glucose Negative COVID-19 Source SARS-CoV-2 (PCR) 01/10/21 01/10/21 07:08 08:45 WBC RBC Hgb Hct MCV MCH MCHC RDW Plt Count MPV Immature Gran % Neutrophils % Lymphocytes % Monocytes % Eosinophils % Basophils % Nucleated RBC % Absolute Neutrophils Absolute Lymphocytes Absolute Monocytes Absolute Eosinophils Absolute Basophils RBC Morphology VBG Lactate 0.9 Sodium Potassium Chloride Carbon Dioxide Anion Gap BUN Creatinine Estimated GFR/1.73 m2 Glucose Calcium Total Bilirubin AST ALT Alkaline Phosphatase Total Protein Albumin Lipase Urine Color Urine Clarity Urine pH Ur Specific [place] Urine Protein Urine Ketones Urine Blood Urine Nitrite Urine Bilirubin Urine Urobilinogen Ur Leukocyte Esterase Urine RBC Urine WBC Ur Epithelial Cells Urine Crystals Urine Bacteria Urine Casts Urine Mucus Ur Culture Indicated? Urine Glucose COVID-19 Source Nasal/nares SARS-CoV-2 (PCR) Negative Last Vital Signs Temp 98.6 F 01/10/21 09:32 Pulse 97 H 01/10/21 09:31 Resp 22 01/10/21 09:31 BP 125/65 01/10/21 09:31 Pulse Ox 91 L 01/10/21 09:31 COVID-19 Screening Have you, or household traveled for leisure in last 14 days?: No Had IN PERSON contact w/suspected or confirmed C-19 person: No
[2021-01-10] MEDS: Lactated Ringers 1,000 ML 30 ML IV (11:15)
--- NOTE | 2021-01-10 11:55 | GB_PTH ---
PATIENT: MATHEUS PARISI LOC: U#:[id number] AGE/SX: 75/M ROOM: [facility] [id number] RE01/10/[address]: Otilio Hua MD : [id number] BED: A DIS: 01/10/2021 SPEC #: [id number] RECD: 01/12/21 12:41 STATUS: GWEN REQ #: [id number] TERRA: 01/10/21 11:[address]: Otilio Hua DEPT: Surgical Specimen RECD BY: Rosy Delacruz ENTERED: 01/12/21 12:42 SP TYPE: GB OTHR DR: Nestor Barry MD Tissues: 1 - GALLBLADDER Procedures: GROSS AND MICRO LEVEL 3 Comments: [id number]
[2021-01-10] MEDS: Bupivacaine 0.5% Pres-Free 30 ML VIAL (12:14)
--- NOTE | 2021-01-10 12:15 | W.PM.OP ---
Date of service: 01/10/21 Time of Service: 12:15 Operative Note Operative Note PRE-OP DIAGNOSIS: acute cholecystitis POST-OP DIAGNOSIS: same PROCEDURE: Laparoscopic cholecystectomy SURGEON: Jessica Hua ANESTHESIA TYPE: General LMA/ETT Refer to Anesthesia Record ESTIMATED BLOOD LOSS: 20 PATHOLOGY: other (gallbladder) COMPLICATIONS: None Patient was transported to: PACU Patient's condition: stable Indications: acute cholecystitis Findings: inflamed distended gallbadder Procedure Description: in the supine position, patient prepped/draped sterily, timeout performed. Veress needle entry performed at bahena's point with negative saline drip test and 5mmHg. Optiview technique used to gain access through a transverse 1.5cm supraumbilical incision. No entry injury or veress needle injury seen. inspection of the abdomen revealed inflammatory changes in the right upper quadrant. Omental attachments were seen on the dome of a distended and inflamed gallbladder. Gallbladder was aspirated to facilitate cephalad retraction. Thick inflamed fat around callot's triangle was dissected carefully. The duct and artery were identified and dissected circumfirentially. Critical view of safety was obtained with cystic artery running through the center of calot's triangle. Both structures were clipped twice proximally and once distally and divided. No bleeding or leaking was seen. Gallbladder taken off the liver bed with electrocautery. No bleeding or leak seen. Gallbladder placed in an endocatch bag and removed from abdomen. The gallbladder fossa was irrigated and suctioned clear. Ports removed and abdomen desufflated. Transfascial incision closed with 0 vicryl figure of 8. Incisions closed with 4-0 monocryl. Dressing applied and patient awakened and taken to PACU in stable condition. All counts correct.
[2021-01-10] MEDS: Enoxaparin 40 MG/0.4 ML SYR SC (13:59)
--- NOTE | 2021-01-10 17:28 | W.PM.DS.N ---
Date of service: 01/10/21 Time of Service: 17:28 DS: Diagnosis Discharge Diagnosis (1) Acute cholecystitis: Status: Acute Discharge Plan Disposition Patient Disposition: HOME Condition: Stable Discharge Details Reason For Visit: ACUTE CHOLECYSTITIS Admit Date/Time: 01/10/21 09:56 Admit Provider: Otilio Hua Attending Provider: Otilio Hua Primary Care Provider: Nestor Barry Hospital Course Hospital Course: patient admitted 01/10/21 with acute cholecystitis. taken to OR for lap ilan. postop tolerated oral diet and meds and was discharged home with the below instructions and medications Home Meds and New Rx's Prescriptions: New oxycodone-acetaminophen 5-325 mg Tablet 1 tab PO Q4H PRN PRN (Reason: Pain) Qty: 24 RF: 0 Continued lisinopril-hydrochlorothiazide 10-12.5 mg tablet 1 tab PO DAILY Qty: 90 RF: 3 acetaminophen [Tylenol] 325 mg Capsule 650 mg PO Q6H PRNQty: 0 RF: 0 omeprazole 20 mg capsule,delayed release(DR/EC) 20 mg PO DAILY Qty: 30 RF: 0 Discharge Instructions Instructions: Laparoscopic Cholecystectomy (DC) Additional Instructions: 1) d/c home on regular diet 2) no lifting over 30 lbs for 6 weeks 3) shower daily, no tub baths 4) no driving on pain medication 5) f/u with Dr Frederick or Dr Small, 1-2 weeks. call [phone] for apt 6) call office or seek ER care for fever over 101.5, shaking chills, foul-smelling discharge or spreading redness from incisions, yellowing of the eyes, severe right upper abdomen pain, or inability to tolerate oral diet. Activity:: Activity as Tolerated Equipment/Supplies:: No Equipment Needed Diet:: As Tolerated Discharge Orders Discharge Orders: Discharge Order (Routine); Ordered 01/10/21 Ordered By: Otilio Hua Discharge Data Discharge Date/Time-TO BE ENTERED AT DEPARTURE: 01/10/21 17:27 DS: Summary Time Spent with Patient providing and/or coordinating discharge services: Less than 30 minutes Status at Discharge Functional status at discharge: independent ambulation Overall status at discharge: patient is progressing back to baseline Mental Status: mental status grossly normal Speech and Movement: speech and movement normal Mood: congruent mood Affect: normal affect Exam Narrative Exam Narrative: NAD RRR S1S2 CTA B S/ND/Incisional tenderness Incisions dressed and dry Psych Mental Status: mental status grossly normal Speech and Movement: speech and movement normal Mood: congruent mood Affect: normal affect DS: Data Vitals/I&O Vitals and I&O: Vital Signs Temperature 97.9 F 01/10/21 14:11 Temperature Source Tympanic 01/10/21 14:11 Pulse 65 01/10/21 14:11 Pulse Rhythm Regular 01/10/21 13:44 Pulse 100 H 01/10/21 09:55 Respiratory Rate 18 01/10/21 14:11 Respiratory Effort Non-Labored 01/10/21 13:44 Respiratory Depth Normal 01/10/21 13:44 Respiratory Pattern Normal 01/10/21 13:44 Blood Pressure 108/64 01/10/21 14:11 Blood Pressure Mean 92 01/10/21 09:55 Blood Pressure Position Sitting 01/10/21 06:25 Pulse Oximetry 90 L 01/10/21 14:11 Respiratory End-tidal CO2 32 01/10/21 13:07 Oxygen Delivery Method Room Air 01/10/21 14:11 Oxygen Flow Rate 0 01/10/21 14:11 Pain Level 0 01/10/21 13:42 Intake & Output 01/09/21 01/10/21 01/10/21 23:59 11:59 23:59 Intake Total 1056.25 / 1516.25 460 / 1516.25 Output Total 50 / 50 Balance 1056.25 / 1466.25 410 / 1466.25 Weight 117.934 kg 116.6 kg Intake: IV 1056.25 / 1456.25 400 / 1456.25 Oral 60 / 60 Output: Urine 50 / 50 Emesis 0 / 0 Other: Urine Color Yellow Yellow Urine Appearance Clear Clear Emesis Description None Data Completed and Pending Labs on day of discharge: Labs from last 24 hours 01/10/21 01/10/21 01/10/21 08:45 07:08 06:40 WBC 18.80 H D RBC 5.46 Hgb 16.2 Hct 48.3 MCV 88.5 MCH 29.7 MCHC 33.5 RDW 13.4 Plt Count 265 MPV 9.8 Immature Gran % 0.6 Neutrophils % 72.1 Lymphocytes % 14.9 Monocytes % 11.9 Eosinophils % 0.2 Basophils % 0.3 Nucleated RBC % 0 Absolute Neutrophils 13.55 H Absolute Lymphocytes 2.80 Absolute Monocytes 2.24 H Absolute Eosinophils 0.04 Absolute Basophils 0.06 RBC Morphology Normal VBG Lactate 0.9 Sodium Potassium Chloride Carbon Dioxide Anion Gap BUN Creatinine Estimated GFR/1.73 m2 Glucose Calcium Total Bilirubin AST ALT Alkaline Phosphatase Total Protein Albumin Lipase Urine Color Urine Clarity Urine pH Ur Specific [place] Urine Protein Urine Ketones Urine Blood Urine Nitrite Urine Bilirubin Urine Urobilinogen Ur Leukocyte Esterase Urine RBC Urine WBC Ur Epithelial Cells Urine Crystals Urine Bacteria Urine Casts Urine Mucus Ur Culture Indicated? Urine Glucose COVID-19 Source Nasal/nares SARS-CoV-2 (PCR) Negative 01/10/21 01/10/21 06:40 06:35 WBC RBC Hgb Hct MCV MCH MCHC RDW Plt Count MPV Immature Gran % Neutrophils % Lymphocytes % Monocytes % Eosinophils % Basophils % Nucleated RBC % Absolute Neutrophils Absolute Lymphocytes Absolute Monocytes Absolute Eosinophils Absolute Basophils RBC Morphology VBG Lactate Sodium 134 L Potassium 4.1 Chloride 98 Carbon Dioxide 23.8 Anion Gap 12.2 H BUN 15 Creatinine 1.3 Estimated GFR/1.73 m2 53.96 Glucose 126 H Calcium 9.0 Total Bilirubin 1.3 H AST 19 ALT 49 Alkaline Phosphatase 100 Total Protein 8.9 H Albumin 3.4 Lipase 70 Urine Color Luisa Urine Clarity Clear Urine pH 6.0 Ur Specific [place] 1.025 Urine Protein 30 H Urine Ketones Negative Urine Blood Trace-lysed H Urine Nitrite Negative Urine Bilirubin Negative Urine Urobilinogen 0.2 Ur Leukocyte Esterase Negative Urine RBC 0-2 Urine WBC 3-5 Ur Epithelial Cells Few Urine Crystals Negative Urine Bacteria Few Urine Casts Negative Urine Mucus Moderate Ur Culture Indicated? No Urine Glucose Negative COVID-19 Source SARS-CoV-2 (PCR) [facility] Medical History (Updated 01/10/21 @ 09:04 by Héctor Moise MD) Acne rosacea Actinic keratosis Allergic rhinitis Back pain BPH (benign prostatic hyperplasia) Chronic alcohol use Colon polyp Deviated septum Diverticulitis large intestine w/o perforation or abscess w/o bleeding Erectile disorder due to medical condition in male Fatty liver Hyperlipidemia Hypertension Sleep apnea Syncope Ulcerative colitis Urticaria Surgical History Arthroplasty of knee 05/05; b/l Colonoscopy - MAC (07/20/17) History of arthroplasty of left shoulder Family History Mother , 92 Mental disorder ALZHEIMERS Father , 72 CHF (congestive heart failure) Heart disease Brother No problems noted. Maternal Grandfather , 86 No problems noted. Paternal Grandfather , 84 No problems noted. Maternal Grandmother No problems noted. Paternal Grandmother No problems noted. Sister Breast cancer Sister No problems noted. Sister No problems noted. Sister No problems noted. Sister No problems noted. Sister No problems noted. Son No problems noted. Son No problems noted. Daughter No problems noted. Daughter No problems noted. Daughter , ACCIDENTAL at age 35. No problems noted. Social History Smoking/Tobacco Use Status: Former Tobacco Use Smoking risk assessment performed?: Yes Alcohol Intake: current Alcohol Intake frequency: a few times a week Alcohol type: beer Drug use: Never Substance use type: does not use Household members: spouse Communication Needs: Corrective Lenses Pets and animals: No Current gender identity: decline to answer What is your relationship status?: How often do you talk on the phone with friends or family?: three or more times per week How often do you get together with friends or relatives?: once per week How often do you attend jewish or yazidi services?: decline to answer Do you belong to any clubs or organized social groups?: no Panel score (0-1 are the most socially isolated patients): 2 What type of physical activity do you participate in: decline to answer Duration: decline to answer Frequency: decline to answer Moira/Quaker: Hoahaoism Special moira needs: No Seatbelt use: always Drive 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
== END 2021-01-10 18:30 | disposition home or self-care (01) ==
LOC: ER 09:04 → SUR 09:55 → MS 13:49 → SUR 01-11 08:51 → ER 01-11 08:51 → MS 01-11 08:51
PROVIDERS: Student in an Organized Health Care Education/Training Program; Admitting Provider Surgery; Emergency Provider Emergency Medicine; PCP Family Medicine; Visit Provider Surgery
PROC: 0FT44ZZ Resection of Gallbladder, Percutaneous Endoscopic Approach (ICD-10-PCS; CPT 47562; principal; 2021-01-10 10:00)
DX: K80.00 Calculus of gallbladder with acute cholecystitis without obstruction (principal); K82.A1 Gangrene of gallbladder in cholecystitis; N40.0 Benign prostatic hyperplasia without lower urinary tract symptoms; K76.0 Fatty (change of) liver, not elsewhere classified; E78.5 Hyperlipidemia, unspecified; I10 Essential (primary) hypertension; G47.30 Sleep apnea, unspecified; K51.90 Ulcerative colitis, unspecified, without complications
CPT/HCPCS: 47562; 36415; 80053; 83690; 87635; 96361; 96365; 96367; 99217; 99220; 99222; 99285; J1650; 76705; 81003; 81015; 83605; 85025; 88304; G0378; J0131; J2001; J2250; J2370; J2543

== ENCOUNTER → 2021-01-22 10:46 | Outpatient (BNVA) | payer MEDICARE, OTHER, SELFPAY | PROVIDERS: PCP Family Medicine; Referring Provider Family Medicine; Visit Provider Surgery | DX: Z48.815 Encounter for surgical aftercare following surgery on the digestive system (principal) ==

== ENCOUNTER 2021-05-01 10:04 | Outpatient (CLI) | payer MEDICARE, OTHER, SELFPAY ==
[2021-05-01 12:44] LABS: Abs Immature Grans 0.03 10^3/uL (0.0-0.06); Absolute Basophil Count 0.06 10^3/uL (0.0-0.2); Absolute Eosinophil Count 0.11 10^3/uL (0.0-0.7); Absolute Lymphocyte Count 2.89 10^3/uL (1.2-3.4); Absolute Monocyte Count 1.07 10^3/uL (0.1-0.8); Absolute Neutrophil Count 4.87 10^3/uL (1.2-6.7); Basophils % 0.7; Eosinophils % 1.2; HCT 47.9 % (40.0-50.0); Immature Grans % 0.3; MCH 29.6 pg (27.0-33.0); MCHC 33.4 % (32.0-36.0); MCV 88.5 fL (80-95); MPV 9.5 fL (8.0-11.0); Monocytes % 11.8; Nucleated RBC 0 %; Platelet Count 273 10^3/uL (130-400); RBC 5.41 10^6/uL (4.36-5.78); RDW 13.4 % (11.8-14.1); RDW-SD 43.8 fL; WBC 9.03 10^3/uL (4.4-10.8)
[2021-05-01 13:31] LABS: Hemoglobin A1C 5.6 % (<5.7)
== END 2021-05-01 10:05 | disposition home or self-care (01) ==
LOC: LOS 10:04
PROVIDERS: PCP Family Medicine; Referring Provider Family Medicine; Visit Provider Family Medicine
DX: R73.9 Hyperglycemia, unspecified (principal)
CPT/HCPCS: 36415; 83036; 85025